=== PATIENT | female | born 1940 | race Caucasian/White ===

== ENCOUNTER 2017-05-13 17:19 | Emergency (ER) | payer MEDICARE, OTHER ==
[~2017-05-13] VITALS: Ht 154.9 cm; Wt 77.1 kg
[~2017-05-13 17:19] MED LIST: ALBU90OI INH; AMLO5 PO; ATOR10 PO; Crestor5 MG PO; DEXL60CA3 PO; HYDACE10B PO; HYDACE5 PO; HYDCHL25 PO; IBUP800 PO; LOSHYD100 PO; METF500 PO; METO100 PO; METO100ER PO; NAPR500 PO; OMEP20ER PO; Omega 3 1,0001 EACH PO; RANI150 PO; ROSU5 PO; SPIRIVA INH; TIOT18 IH; TIOT18 INH; Ultram50 MG PO
[2017-05-13 18:47] LABS: Source, Urine Clean Catch
[2017-05-13 18:52] LABS: BASOPHILS ABSOLUTE AUTO 0.02 K/mm3 (0.00-0.23); BASOPHILS PERCENT AUTO 0 % (0-2); EOSINOPHILS ABSOLUTE AUTO 0.01 K/mm3 (0.00-0.68); EOSINOPHILS PERCENT AUTO 0 % (0-6); Hematocrit 38.2 % (33.0-51.0); Hemoglobin 12.5 g/dL (11.5-16.0); IMMATURE GRAN ABSOLUTE AUTO 0.04 K/mm3 (0.00-0.10); IMMATURE GRAN PERCENT AUTO 0 % (0-1); LYMPHOCYTES ABSOLUTE AUTO 0.71 K/mm3 (0.84-5.20); LYMPHOCYTES PERCENT AUTO 7 % (21-46); MONOCYTES ABSOLUTE AUTO 0.58 K/mm3 (0.16-1.47); MONOCYTES PERCENT AUTO 5 % (4-13); Mean Corpuscular HGB 28.4 pg (26.0-34.0); Mean Corpuscular HGB Conc 32.7 g/dL (31.5-36.5); Mean Corpuscular Volume 87 fL (80-100); Mean Platelet Volume 9.8 fL (9.1-12.4); NEUTROPHILS ABSOLUTE AUTO 9.43 K/mm3 (1.96-9.15); NEUTROPHILS PERCENT AUTO 87 % (41-73); Platelet Count 324 K/mm3 (150-400); RDW Coefficient Variation 14.3 % (11.7-14.2); RDW Standard Deviation 45.3 fL (35.1-46.3); White Blood Cell Count 10.79 K/mm3 (4.00-11.30)
[2017-05-13 18:52] LABS: Appearance, Urine Clear (Clear); Bilirubin, Urine Neg (Neg); Blood, Urine Neg (Neg); Color, Urine Yellow (P-Yellow); Glucose Qualitative, Urine Neg (Neg); Ketones, Urine Neg (Neg); Leukocyte Esterase, Urine 1+ (Neg); Nitrite, Urine Neg (Neg); Protein, Urine Neg (Neg); Urobilinogen, Urine 2+ (Normal)
[2017-05-13 19:02] LABS: Bacteria Few /hpf; Red Blood Cells, Urine 0-2 /hpf (0-2); Squamous Epithelial Cells Mod /hpf (Few)
[2017-05-13 19:09] LABS: Alanine Aminotransfer (ALT/SGP 203 U/L (12-78); Albumin, Blood 3.5 g/dL (3.4-5.0); Albumin/Globulin Ratio 0.9 (0.8-1.8); Alk Phos 437 U/L (50-136); Anion Gap 7 mmol/L (6-16); Aspartate Aminotrans (AST/SGOT 344 U/L (12-37); Bilirubin, Total 2.4 mg/dL (0.1-1.0); Blood Urea Nitrogen 12 mg/dL (8-24); Bun/Creatinine Ratio 14.2 (12.0-20.0); CO2, Blood 30 mmol/L (21-32); Calcium, Blood 9.6 mg/dL (8.5-10.1); Chloride, Blood 100 mmol/L (98-108); Creatinine, Blood 0.85 mg/dL (0.40-1.00); Glomerular Filtration Rate >60 (60-); Glucose, Blood 135 mg/dL (70-99); Potassium, Blood 2.7 mmol/L (3.5-5.5); Sodium, Blood 137 mmol/L (136-145); Total Protein, Blood 7.5 g/dL (6.4-8.2)
== END 2017-05-14 00:15 ==
LOC: ER 17:19
PROVIDERS: Emergency Medicine
DX: K80.71 Calculus of gallbladder and bile duct without cholecystitis with obstruction (principal); K57.30 Diverticulosis of large intestine without perforation or abscess without bleeding; I10 Essential (primary) hypertension; Z88.0 Allergy status to penicillin; Z79.899 Other long term (current) drug therapy; Z87.891 Personal history of nicotine dependence
CPT/HCPCS: 36415; 74177; 80053; 81001; 83690; 85025; 96361; 96365; 96366; 96368; 96375; 99285; J0692; J2001; J2405; J3480; J7030; Q9967

== ENCOUNTER 2017-07-06 09:36 | Day surgery (SDC) | payer MEDICARE, OTHER ==
[~2017-07-06] VITALS: Ht 154.9 cm; Wt 77.6 kg
[~2017-07-06 09:36] MED LIST changes: +Coq-10100 MG PO
== END 2017-07-06 23:02 | disposition home or self-care (01) ==
LOC: ORSCMMR 09:36 → ORD 11:15 → ORSCMMR 23:02
PROVIDERS: Surgery
PROC: 0WUF0JZ Supplement Abdominal Wall with Synthetic Substitute, Open Approach (ICD-10-PCS; principal; 2017-07-06 12:30)
DX: K43.2 Incisional hernia without obstruction or gangrene (principal); I10 Essential (primary) hypertension; J44.9 Chronic obstructive pulmonary disease, unspecified; E11.9 Type 2 diabetes mellitus without complications; Z79.899 Other long term (current) drug therapy
CPT/HCPCS: 82947; C1713; C1781; J1100; J1885; J2405; J2710; J3010; J7120

== ENCOUNTER 2017-07-20 13:32 | Inpatient (IN) | payer MEDICARE, OTHER ==
[~2017-07-20] VITALS: Ht 157.5 cm; Wt 75.8 kg
[2017-07-25] MEDS ORDERED: LOSARTAN-HCTZ1 EAC1 PO (07:05)
[2017-07-26 04:31] LABS: BASOPHILS ABSOLUTE AUTO 0.02 K/mm3 (0.00-0.23); BASOPHILS PERCENT AUTO 0 % (0-2); EOSINOPHILS ABSOLUTE AUTO 0.03 K/mm3 (0.00-0.68); EOSINOPHILS PERCENT AUTO 0 % (0-6); Hemoglobin 9.2 g/dL (11.5-16.0); IMMATURE GRAN ABSOLUTE AUTO 0.04 K/mm3 (0.00-0.10); IMMATURE GRAN PERCENT AUTO 0 % (0-1); LYMPHOCYTES ABSOLUTE AUTO 1.56 K/mm3 (0.84-5.20); LYMPHOCYTES PERCENT AUTO 16 % (21-46); MONOCYTES ABSOLUTE AUTO 0.75 K/mm3 (0.16-1.47); MONOCYTES PERCENT AUTO 8 % (4-13); Mean Corpuscular HGB 27.7 pg (26.0-34.0); Mean Corpuscular HGB Conc 31.7 g/dL (31.5-36.5); Mean Corpuscular Volume 87 fL (80-100); Mean Platelet Volume 9.5 fL (9.1-12.4); NEUTROPHILS ABSOLUTE AUTO 7.42 K/mm3 (1.96-9.15); NEUTROPHILS PERCENT AUTO 76 % (41-73); Platelet Count 264 K/mm3 (150-400); RDW Coefficient Variation 14.9 % (11.7-14.2); RDW Standard Deviation 47.6 fL (35.1-46.3); Red Blood Cell Count 3.32 M/mm3 (3.80-5.20); White Blood Cell Count 9.82 K/mm3 (4.00-11.30)
[2017-07-26 04:56] LABS: Anion Gap 9 mmol/L (6-16); Blood Urea Nitrogen 14 mg/dL (8-24); Bun/Creatinine Ratio 18.1 (12.0-20.0); CO2, Blood 27 mmol/L (21-32); Calcium, Blood 8.5 mg/dL (8.5-10.1); Chloride, Blood 107 mmol/L (98-108); Creatinine, Blood 0.78 mg/dL (0.40-1.00); Glomerular Filtration Rate >60 (60-); Glucose, Blood 108 mg/dL (70-99); Potassium, Blood 3.6 mmol/L (3.5-5.5); Sodium, Blood 143 mmol/L (136-145)
[2017-07-26] MEDS ORDERED: ASPI325EC PO (15:12)
[2017-07-26] MEDS ORDERED: OXYC5 PO (15:13)
== END 2017-07-26 15:45 | disposition home or self-care (01) | DRG 483 ==
LOC: SURS 07-25 05:32 → PRE IP 07-25 07:30 → SURS 07-25 12:09
PROVIDERS: Orthopaedic Surgery
PROC: 0RRK00Z Replacement of Left Shoulder Joint with Reverse Ball and Socket Synthetic Substitute, Open Approach (ICD-10-PCS; principal; 2017-07-25 07:30)
DX: M19.012 Primary osteoarthritis, left shoulder (principal); E11.9 Type 2 diabetes mellitus without complications; I10 Essential (primary) hypertension; E78.5 Hyperlipidemia, unspecified; J44.9 Chronic obstructive pulmonary disease, unspecified; K21.9 Gastro-esophageal reflux disease without esophagitis
CPT/HCPCS: 36415; 73030; 80048; 82947; 85025; 86850; 86900; 86901; 94640; 94760; 97110; 97116; 97162; 97165; 97535; C1776; G8978; G8979; G8980; G8987; G8988; G8989; J0171; J0690; J0735; J1100; J1885; J2250; J2405; J2765; J2795; J3010; J7120; Q0163

== ENCOUNTER 2018-04-03 05:33 | Inpatient (IN) | payer MEDICARE, OTHER ==
[~2018-04-03] VITALS: Ht 157.5 cm; Wt 74.4 kg
[~2018-04-03 05:33] MED LIST changes: +ASPI325EC PO; +IBUP400 PO; +LOSARTAN-HCTZ1 EAC1 PO; +OMEGA PO; +OXYC5 PO; +[UNRECOGNIZED DRUG - OTHER] PO
--- NOTE | 2018-04-10 08:01 | NUR ---
0620 PT TO DAY SURGERY VIA W/C CONFIRMED PATIENT. AND SURGERY. PRE OP TEACHING DONE. LUNGS CLEAR. H&P AND ALLERGIES REVIEWED. FAMILY AT BEDSIDE. 0715 CLINCHING MACHINE OPERATOR OUT TO SEE PT BEDSIDE REPORT GIVEN. [id number] DENTURES AND GLASSES PLACED IN PACU
[2018-04-11 05:19] LABS: BASOPHILS ABSOLUTE AUTO 0.01 K/mm3 (0.00-0.23); BASOPHILS PERCENT AUTO 0 % (0-2); EOSINOPHILS ABSOLUTE AUTO 0.01 K/mm3 (0.00-0.68); EOSINOPHILS PERCENT AUTO 0 % (0-6); Hematocrit 27.8 % (33.0-51.0); Hemoglobin 8.6 g/dL (11.5-16.0); IMMATURE GRAN ABSOLUTE AUTO 0.03 K/mm3 (0.00-0.10); IMMATURE GRAN PERCENT AUTO 0 % (0-1); LYMPHOCYTES ABSOLUTE AUTO 1.42 K/mm3 (0.84-5.20); LYMPHOCYTES PERCENT AUTO 13 % (21-46); MONOCYTES ABSOLUTE AUTO 0.66 K/mm3 (0.16-1.47); MONOCYTES PERCENT AUTO 6 % (4-13); Mean Corpuscular HGB 25.5 pg (26.0-34.0); Mean Corpuscular HGB Conc 30.9 g/dL (31.5-36.5); Mean Corpuscular Volume 83 fL (80-100); Mean Platelet Volume 9.7 fL (9.1-12.4); NEUTROPHILS PERCENT AUTO 80 % (41-73); Platelet Count 263 K/mm3 (150-400); RDW Coefficient Variation 17.6 % (11.7-14.2); RDW Standard Deviation 52.6 fL (35.1-46.3); Red Blood Cell Count 3.37 M/mm3 (3.80-5.20); White Blood Cell Count 10.83 K/mm3 (4.00-11.30)
[2018-04-11 05:53] LABS: Anion Gap 10 mmol/L (6-16); Blood Urea Nitrogen 16 mg/dL (8-24); Bun/Creatinine Ratio 21.6 (12.0-20.0); CO2, Blood 24 mmol/L (21-32); Calcium, Blood 8.9 mg/dL (8.5-10.1); Chloride, Blood 107 mmol/L (98-108); Creatinine, Blood 0.74 mg/dL (0.40-1.00); Glomerular Filtration Rate >60 (60-); Glucose, Blood 144 mg/dL (70-99); Potassium, Blood 3.9 mmol/L (3.5-5.5); Sodium, Blood 141 mmol/L (136-145)
--- NOTE | 2018-04-11 07:04 | NUR ---
HAS HAD A GREAT NIGHT, HAS NOT BEEN ABLE TO SLEEP, BUT HAS BEEN ABLE TO REST WELL. DENIES PAIN CURRENTLY, PAIN MANAGED WITH 1X DOSE OF BREAKTHROUGH ROXYCODONE AND ROUTINE TORADOL AND TYLENOL. DENIES FURTHER NEEDS AT THIS TIME. SAFETY MEASURES IN PLACE. WILL CONTINUE TO MONITOR.
--- NOTE | 2018-04-11 14:06 | NUR ---
DR Vasquez. RECENTLY HERE. DISCUSSED PT'S STATUS.
[2018-04-11] MEDS ORDERED: ASPI325EC PO (16:45)
[2018-04-11] MEDS ORDERED: ROXICODONE5 MG PO (16:46)
--- NOTE | 2018-04-11 18:30 | NUR ---
DISCHARGE: PT EATING AND DRINKING. PT REPORTS PAIN CONTROLLED ON PO PAIN MEDICATION. PT/FAMILY REPORTS UNDERSTANDING OF DISCHARGE INSTRUCTIONS INCLUDING THERAPY RESTRICTIOINS. PT CLEARED BY THERAPY TO GO HOME. PT SENT WITH DRESSINGS AND ICE BAGS. PT HAS IMMOBILIZER IN PLACE.
== END 2018-04-11 18:30 | disposition home or self-care (01) | DRG 483 ==
LOC: PRE IP 05:33 → SURS 05:33 → PRE IP 07:30 → SURS 04-10 05:31 → PRE IP 04-10 07:30 → SURS 04-10 12:41
PROVIDERS: ADMIT Orthopaedic Surgery
PROC: 0RRJ00Z Replacement of Right Shoulder Joint with Reverse Ball and Socket Synthetic Substitute, Open Approach (ICD-10-PCS; principal; 2018-04-10 07:30)
DX: M19.011 Primary osteoarthritis, right shoulder (principal); I10 Essential (primary) hypertension; J44.9 Chronic obstructive pulmonary disease, unspecified; E11.9 Type 2 diabetes mellitus without complications; E78.5 Hyperlipidemia, unspecified; G89.29 Other chronic pain; Z88.0 Allergy status to penicillin; Z87.891 Personal history of nicotine dependence; Z79.899 Other long term (current) drug therapy; Z85.038 Personal history of other malignant neoplasm of large intestine
CPT/HCPCS: 36415; 73030; 80048; 82947; 85025; 88300; 94640; 94760; 97110; 97116; 97162; 97166; 97530; 97535; C1776; J0171; J0360; J0690; J0735; J1100; J1885; J2405; J2795; J3010; J7120

== ENCOUNTER 2021-01-30 16:22 | Inpatient (IN) | payer OTHER ==
[~2021-01-30] VITALS: Ht 154.9 cm; Wt 69.4 kg
[~2021-01-30 16:22] MED LIST changes: +METO25ER PO; +ROXICODONE5 MG PO
[2021-01-30] MEDS ORDERED: SPIR25 PO (16:38)
[2021-01-30] MEDS ORDERED: IBUP400 PO (16:40)
[2021-01-30] MEDS ORDERED: POTCHL20ER PO (16:41)
[2021-01-30] MEDS ORDERED: ALBU8HFA2 INH (16:42)
[2021-01-30] MEDS ORDERED: ANORO ELLIPTA1 EACH INH (16:42)
[2021-01-30 17:16] LABS: BASOPHILS ABSOLUTE AUTO 0.03 K/mm3 (0.00-0.23); BASOPHILS PERCENT AUTO 0 % (0-2); EOSINOPHILS PERCENT AUTO 0 % (0-6); Hematocrit 20.3 % (33.0-51.0); IMMATURE GRAN ABSOLUTE AUTO 0.19 K/mm3 (0.00-0.10); IMMATURE GRAN PERCENT AUTO 1 % (0-1); LYMPHOCYTES ABSOLUTE AUTO 0.75 K/mm3 (0.84-5.20); LYMPHOCYTES PERCENT AUTO 4 % (21-46); MONOCYTES PERCENT AUTO 6 % (4-13); Mean Corpuscular HGB 23.5 pg (26.0-34.0); Mean Corpuscular HGB Conc 29.6 g/dL (31.5-36.5); Mean Corpuscular Volume 80 fL (80-100); Mean Platelet Volume 10.2 fL (9.1-12.4); NEUTROPHILS ABSOLUTE AUTO 18.39 K/mm3 (1.96-9.15); NEUTROPHILS PERCENT AUTO 89 % (41-73); NRBC ABSOLUTE 0.23 K/mm3 (0.00-0.02); NRBC Auto 1.1 /100 WBC (0.0-0.2); Platelet Count 434 K/mm3 (150-400); RDW Coefficient Variation 24.7 % (11.7-14.2); Red Blood Cell Count 2.55 M/mm3 (3.80-5.20); White Blood Cell Count 20.66 K/mm3 (4.00-11.30)
[2021-01-30 17:44] LABS: Alanine Aminotransfer (ALT/SGP 50 U/L (12-78); Albumin/Globulin Ratio 0.8 (0.8-1.8); Alk Phos 95 U/L (50-136); Anion Gap 9 mmol/L (6-16); Aspartate Aminotrans (AST/SGOT 70 U/L (12-37); Bilirubin, Total 0.3 mg/dL (0.1-1.0); Blood Urea Nitrogen 16 mg/dL (8-24); Bun/Creatinine Ratio 19.4 (12.0-20.0); CO2, Blood 21 mmol/L (21-32); Calcium, Blood 9.9 mg/dL (8.5-10.1); Chloride, Blood 107 mmol/L (98-108); Creatinine, Blood 0.82 mg/dL (0.40-1.00); Globulin, Blood 3.7 g/dL (2.2-4.0); Glomerular Filtration Rate >60 (60-); Glucose, Blood 226 mg/dL (70-99); Potassium, Blood 4.4 mmol/L (3.5-5.5); Sodium, Blood 137 mmol/L (136-145); Total Protein, Blood 6.7 g/dL (6.4-8.2)
[2021-01-30 19:05] LABS: International Normalized Ratio 1.13; Prothrombin Time Results 11.8 Sec (9.7-11.5)
[2021-01-30 20:14] LABS: Percent Saturation 3.7 % (15.0-50.0)
[2021-01-30 21:08] LABS: Source, Urine Catheter
[2021-01-30 21:15] LABS: Bilirubin, Urine Neg (Neg); Blood, Urine 2+ (Neg); Glucose Qualitative, Urine Neg (Neg); Ketones, Urine Neg (Neg); Leukocyte Esterase, Urine Neg (Neg); Nitrite, Urine Neg (Neg); Protein, Urine 2+ (Neg); Specific Gravity, Urine 1.025 (1.003-1.022); Urobilinogen, Urine NORM (Normal)
[2021-01-30 21:22] LABS: PCO2 Venous 44.4 mmHg (38-42); PO2 Venous 33 mmHg (38-42); pH Blood Venous 7.14 (7.34-7.37)
[2021-01-30 21:23] LABS: Base Excess Venous -14.2 mmol/L; Bicarbonate Venous 13.4 mmol/L (24.0-30.0)
[2021-01-30 21:25] LABS: Appearance, Urine Clear (Clear); Color, Urine Yellow (P-Yellow)
[2021-01-30 21:27] LABS: Amorphous Light (0-Heavy); Bacteria Rare /hpf; Squamous Epithelial Cells Few /hpf (Few); White Blood Cells, Urine Rare /hpf (0-5)
[2021-01-30 23:25] LABS: Hematocrit 25.7 % (33.0-51.0); Hemoglobin 7.8 g/dL (11.5-16.0)
[2021-01-31 03:56] LABS: BASOPHILS ABSOLUTE AUTO 0.02 K/mm3 (0.00-0.23); BASOPHILS PERCENT AUTO 0 % (0-2); EOSINOPHILS PERCENT AUTO 0 % (0-6); Hematocrit 21.7 % (33.0-51.0); Hemoglobin 6.9 g/dL (11.5-16.0); IMMATURE GRAN ABSOLUTE AUTO 0.24 K/mm3 (0.00-0.10); IMMATURE GRAN PERCENT AUTO 1 % (0-1); LYMPHOCYTES PERCENT AUTO 4 % (21-46); MONOCYTES PERCENT AUTO 4 % (4-13); Mean Corpuscular HGB 24.8 pg (26.0-34.0); Mean Corpuscular HGB Conc 31.8 g/dL (31.5-36.5); Mean Corpuscular Volume 78 fL (80-100); NEUTROPHILS ABSOLUTE AUTO 15.79 K/mm3 (1.96-9.15); NEUTROPHILS PERCENT AUTO 92 % (41-73); NRBC ABSOLUTE 0.17 K/mm3 (0.00-0.02); Platelet Count 305 K/mm3 (150-400); RDW Coefficient Variation 21.4 % (11.7-14.2); RDW Standard Deviation 61.5 fL (35.1-46.3); Red Blood Cell Count 2.78 M/mm3 (3.80-5.20); White Blood Cell Count 17.25 K/mm3 (4.00-11.30)
[2021-01-31 04:15] LABS: Bun/Creatinine Ratio 21.8 (12.0-20.0); Calcium, Blood 9.1 mg/dL (8.5-10.1); Creatinine, Blood 0.92 mg/dL (0.40-1.00); Potassium, Blood 3.4 mmol/L (3.5-5.5)
--- NOTE | 2021-01-31 07:17 | NUR ---
ON ADMIT, CONFUSED AND VERY LABORED BREATHING. IMPROVED WITH BIPAP. WEANED OFF OF PRECEDEX. HEPARIN DRIP STARTED. FIRST UNIT OF PRBC COMPLETED WITH IMPROVED H&H. NEXT REPEAT OF H&H DROPPED. TROP INCREASING. DR NOTIFIED. 2ND UNIT OF PRBC INFUSING. THIS AM RESP EVEN AND UNLABORED. CHANGED OVER TO NC AT 2L.
--- NOTE | 2021-01-31 07:30 | NUR ---
ASSUME CARE: I have assumed care of pt. At this time she is resting in bed with NC in place, receiving a unit of blood with heparin running.
[2021-01-31 12:27] LABS: PO2 Arterial 184 mmHg (80-100); pH Blood Arterial 7.48 (7.35-7.45)
[2021-01-31 13:37] LABS: Free Thyroxine 1.04 ng/dL (0.70-1.60); Thyroid Stimulating Hormone 1.06 uIU/mL (0.360-4.800)
[2021-01-31 17:38] LABS: Stool Occult Blood Guaiac 1 Neg (Neg)
[2021-01-31 18:29] LABS: Hematocrit 31.6 % (33.0-51.0); Hemoglobin 10.2 g/dL (11.5-16.0)
--- NOTE | 2021-01-31 19:07 | NUR ---
END OF SHIFT: Heparin d/c'd today. Pt had minimal appetite today. She tranferred to commode independantly. Medium sized, very hard BM this afternoon; negative for blood. Pt tolerating BIPAP well; on 2L NC when eating. Third unit of PRBCs infused this shift.
--- NOTE | 2021-01-31 19:35 | NUR ---
ASSUMED PT CARE AT 1915 PT SITTING UP IN BED ALERT AND ORIENTED; ABLE TO MAKE HER NEEDS KNOWN. UTILIZING CALL LIGHT APPROPRIATELY. PT ON 2L OF OXYGEN VIA NC WITH OXYGEN SATURATIONS >90%. PT C/O MUSCLE CRAMPS TO L CALF. PT DRINKING PICKLE JUICE FOR CRAMP TO LEG IN WHICH SHE STATES THIS HELPS AT HOME. MASSAGE GIVEN WITH NOTED TIGHT MUSCLE GROUPS. OFFERED HEAT PACK IN WHICH PT STATED SHE IS OPEN TO TRYING. PT ALSO C/O INDIGESTION; PT IS NSR WITH HR 90'S WITH ST DEPRESSION NOTED. TROPONIN RESULTED WITH A CRITICAL HIGH OF 12.40; DR. CLARKE CALLED WITH NO FURTHER ORDERS. CALLED DR. AGUILAR REGARDING INDIGESTION WITH ORDERS FOR GI COCKTAIL. PT REQUESTED TO GO BACK ON BIPAP; 19/09; FIO2 30%. RESP RATE 20'S. PT DOES NOT APPEAR IN RESPIRATORY DISTRESS AT THIS TIME; ABLE TO SPEAK IN FULL SENTENCES. TEMP VELAZQUEZ IN PLACE AND DRAINING CLEAR, YELLOW URINE TO GRAVITY. CALL LIGHT WITHIN REACH; WILL CONTINUE TO MONITOR.
[2021-01-31 20:16] LABS: Hematocrit 32.1 % (33.0-51.0); Hemoglobin 10.4 g/dL (11.5-16.0)
[2021-01-31 22:17] LABS: Hematocrit 30.6 % (33.0-51.0); Hemoglobin 9.8 g/dL (11.5-16.0)
--- NOTE | 2021-01-31 22:18 | NUR ---
CALL TO DR. AGUILAR PT C/O FREQUENT Q2 HOUR LAB DRAWS FOR H&H. INFORMED DR. AGUILAR OF PT'S CONCERN WITH NO ACTIVE SIGNS OF BLEEDING. VITAL SIGNS STABLE AT THIS TIME, LAST COUPLE H&H'S HAVE REMAINED STABLE AT 10. NEW ORDERS TO REDRAW H&H IN MORNING UNLESS PT SHOWS SIGNS OF ACTIVE BLEEDING.
[2021-02-01 02:20] LABS: BASOPHILS ABSOLUTE AUTO 0.03 K/mm3 (0.00-0.23); BASOPHILS PERCENT AUTO 0 % (0-2); EOSINOPHILS ABSOLUTE AUTO 0.01 K/mm3 (0.00-0.68); EOSINOPHILS PERCENT AUTO 0 % (0-6); Hematocrit 29.9 % (33.0-51.0); Hemoglobin 9.8 g/dL (11.5-16.0); IMMATURE GRAN PERCENT AUTO 1 % (0-1); LYMPHOCYTES ABSOLUTE AUTO 1.45 K/mm3 (0.84-5.20); LYMPHOCYTES PERCENT AUTO 9 % (21-46); MONOCYTES ABSOLUTE AUTO 1.08 K/mm3 (0.16-1.47); MONOCYTES PERCENT AUTO 7 % (4-13); Mean Corpuscular HGB 26.1 pg (26.0-34.0); Mean Corpuscular HGB Conc 32.8 g/dL (31.5-36.5); Mean Corpuscular Volume 80 fL (80-100); Mean Platelet Volume 9.6 fL (9.1-12.4); NEUTROPHILS ABSOLUTE AUTO 13.93 K/mm3 (1.96-9.15); NEUTROPHILS PERCENT AUTO 83 % (41-73); NRBC ABSOLUTE 0.25 K/mm3 (0.00-0.02); NRBC Auto 1.5 /100 WBC (0.0-0.2); Platelet Count 307 K/mm3 (150-400); RDW Coefficient Variation 19.6 % (11.7-14.2); RDW Standard Deviation 56.5 fL (35.1-46.3); Red Blood Cell Count 3.75 M/mm3 (3.80-5.20)
[2021-02-01 02:44] LABS: Magnesium, Blood 1.6 mg/dL (1.6-2.4)
[2021-02-01 03:04] LABS: Albumin, Blood 2.6 g/dL (3.4-5.0); Albumin/Globulin Ratio 0.8 (0.8-1.8); Bilirubin, Total 0.7 mg/dL (0.1-1.0); Bun/Creatinine Ratio 27.4 (12.0-20.0); Calcium, Blood 8.6 mg/dL (8.5-10.1); Creatinine, Blood 1.06 mg/dL (0.40-1.00); Globulin, Blood 3.4 g/dL (2.2-4.0); Potassium, Blood 3.7 mmol/L (3.5-5.5)
--- NOTE | 2021-02-01 05:45 | NUR ---
END OF SHIFT SUMMARY NO SIGNIFICANT CHANGES THIS SHIFT. VSS; SEE FLOWSHEET. HGB REMAINED STABLE. NO ACTIVE SIGNS OF BLEEDING. PT CONTINUES TO C/O UPPER/MID EPIGASTRIC PAIN AND INDIGESTION. MEDICATED WITH GI COCKTAIL X3 THIS SHIFT WITH GOOD EFFECT. PT STATES HER PAIN IS WORSE AFTER SHE EATS AND SHE FEELS REGURGITATION OF FOOD AFTERWARD. THEREFORE, ENCOURAGED PT TO DRINK AN ENSURE, WHICH SHE TOLERATED WELL. PT ADAMANT ABOUT NEEDING TO SPEAK TO HER PHYSCIAN THAT REMOVED HER COLON CANCER SHE BELIEVES THIS IS STRONGLY RELATED. ATTEMPTED TO ENCOURAGE PT THAT MOST SURGICAL COMPLICATIONS DON'T HAPPEN 4 YEARS POST OP AND THAT THIS EVENT WAS MOST LIKELY RELATED TO HER CONSUMPTION OF TOO MUCH IBUPROFEN; PT VERBALIZED UNDERSTANDING. PT ALSO VERBALIZED CONCERN REGARDING HER "PARITALLY BLOCKED CORONARY ARTERY" IN WHICH HER PCP FOUND A COUPLE YEARS AGO THAT WAS "INOPERABLE" DUE TO ITS LOCATION. I INFORMED THE PT THAT SHE IS CURRENTLY BEING TREATED FOR THE SAME OR SIMILAR ISSUE RIGHT NOW AND THAT CARDIOLOGY IS ON HER CASE. PT APPEARED RELIEVED AND STATED, "I HOPE THEY CAN GO IN AND OPEN IT UP." OTHERWISE, PT HAS NOT SLEPT AT ALL THIS SHIFT. SHE HAS BEEN VERY PLEASANT AND COOPERATIVE. DAUGHTER CALLED LATE IN THE SHIFT AND SPOKE WITH PT. 1400CC IN URINE OUTPUT THIS SHIFT WITH 700CC INTAKE. PT ALSO EDUCATED REGARDING HEART FAILURE SHE WASN'T UNDERSTANDING WHY SHE WAS SO SHORT OF BREATH. PT CONTINUES TO NEED REINFORCEMENT WITH EDUCATION. WILL CONTINUE TO MONITOR UNTIL REPORT IS HANDED TO TO ONCOMING RN.
[2021-02-01 06:33] LABS: Hematocrit 31.1 % (33.0-51.0); Hemoglobin 10.1 g/dL (11.5-16.0)
--- NOTE | 2021-02-01 09:38 | NUR ---
PT TOLERATED BREAK FROM BIPAP FOR BREAKFAST. ASKED TO GET UP TO CHAIR FOR REPOSITIONING AND THEN ASKED TO BE BACK ON BIPAP. SETTINGS AT 10/6 WITH 30% FIO2. TOLERATING WELL
--- NOTE | 2021-02-01 14:32 | NUR ---
PT C/O NAUSEA AFTER LUNCH. WAS GIVEN GI COCKTAIL WITH DESIRED EFFECT. PT STATES MUCH IMPROVED. PT FELL ASLEEP WITH NC HANGING OUT OF NOSE AND DESATURATED TO 87%. BIPAP IN PLACE WHILE SLEEPING WITH SATS NOW IN THE 90S.
--- NOTE | 2021-02-01 14:55 | NUR ---
DUMB WAITER OPERATOR CALLED ABOUT PT'S PO STATUS. RN RELAYED THAT PT HAD LUNCH. TECH INSTRUCTED FOR NPO. NPO SIGN ON DOOR AND PT AWARE. WATER REMOVED FROM BEDSIDE TABLE
--- NOTE | 2021-02-01 17:19 | NUR ---
FILE KEEPER AT BEDSIDE AT THIS TIME
--- NOTE | 2021-02-01 17:49 | NUR ---
SHIFT SUMMARY: PT ALTERNATING BETWEEN NC AND BIPAP. DESATURATED ONCE INTO THE 80S WHEN CANNULA CAME OUT OF NOSE, OTHERWISE ONLY ASKS FOR IT TO BE REPLACED AFTER ACTIVITIES. ULTRASOUND COMPLETED DUE TO CONTINUED C/O ABDOMINAL PAIN AFTER EATING. DIURESING WELL. NO ACUTE NEEDS AT THIS TIME.
[2021-02-02 04:08] LABS: Anion Gap 5 mmol/L (6-16); Blood Urea Nitrogen 27 mg/dL (8-24); Bun/Creatinine Ratio 30.7 (12.0-20.0); CO2, Blood 33 mmol/L (21-32); Calcium, Blood 8.7 mg/dL (8.5-10.1); Chloride, Blood 101 mmol/L (98-108); Creatinine, Blood 0.88 mg/dL (0.40-1.00); Glomerular Filtration Rate >60 (60-); Glucose, Blood 119 mg/dL (70-99); Potassium, Blood 4.1 mmol/L (3.5-5.5); Sodium, Blood 139 mmol/L (136-145)
[2021-02-02 08:08] LABS: HBSAG SCREEN Negative (Negative); HEP A AB, IGM Negative (Negative); HEP B CORE AB, IGM Negative (Negative); HEP C VIRUS AB <0.1 (0.0-0.9)
--- NOTE | 2021-02-02 14:02 | NUR ---
0800-- Assumed care of patient at 0700 from hourly shift manager. Sabina has been very pleasant today. She didn't eat much breakfast but she ate all of her lunch. She has been up out of bed for a few hours this morning after her CT scan of her abdomen. She remains on 2L NC of oxygen saturation holding high 90's. Her vital signs remain stable at this time. She received a diuretic this am and has put out almost 2L of urine so far. Her lungs remains with fine crackles bilaterally in bases. Will continue to monitor patient at this time.
--- NOTE | 2021-02-02 18:12 | NUR ---
Pt from ICU in bed, stood out of bed to transfer to the PCU 1 bed. She is holding on to furniture and needing staff assistance for minimal assist during the transfer. Alert, oriented, cheerful and joking with staff. Sat up in bed, neck pillow in place, and she is watching TV. Wearing oxygen at 2 l/min. No shortness of breath noted at rest, mild dyspnea noted with the minimal activity.
--- NOTE | 2021-02-02 18:12 | NUR ---
PATIENT HAD A GOOD AMOUNT OF ACTIVITY TODAY AND ALSO RESTED A BIT THIS AFTERNOON. SHE HAS CONTINUED TO HAVE A POSITIVE ATTITUDE ALL DAY. SHE HAS HAD A TOTAL OF 1800 MLS OUT ALL DAY FROM HER VELAZQUEZ CATHETER. PATIENT MOVED TO PCU 1 THIS AFTERNOON TO RESUME CARE.
--- NOTE | 2021-02-02 18:40 | NUR ---
Pt has been weaned off of oxygen, spo2 maintaining 98% at rest while sitting up in bed, watching TV.
[2021-02-03 03:34] LABS: BASOPHILS ABSOLUTE AUTO 0.03 K/mm3 (0.00-0.23); BASOPHILS PERCENT AUTO 0 % (0-2); EOSINOPHILS ABSOLUTE AUTO 0.09 K/mm3 (0.00-0.68); EOSINOPHILS PERCENT AUTO 1 % (0-6); Hematocrit 31.2 % (33.0-51.0); Hemoglobin 9.5 g/dL (11.5-16.0); IMMATURE GRAN ABSOLUTE AUTO 0.18 K/mm3 (0.00-0.10); IMMATURE GRAN PERCENT AUTO 2 % (0-1); LYMPHOCYTES PERCENT AUTO 16 % (21-46); MONOCYTES ABSOLUTE AUTO 1.01 K/mm3 (0.16-1.47); MONOCYTES PERCENT AUTO 9 % (4-13); Mean Corpuscular HGB Conc 30.4 g/dL (31.5-36.5); Mean Corpuscular Volume 82 fL (80-100); Mean Platelet Volume 9.2 fL (9.1-12.4); NEUTROPHILS ABSOLUTE AUTO 8.25 K/mm3 (1.96-9.15); NEUTROPHILS PERCENT AUTO 73 % (41-73); NRBC ABSOLUTE 0.03 K/mm3 (0.00-0.02); NRBC Auto 0.3 /100 WBC (0.0-0.2); Platelet Count 251 K/mm3 (150-400); RDW Coefficient Variation 20.9 % (11.7-14.2); RDW Standard Deviation 62.2 fL (35.1-46.3); White Blood Cell Count 11.36 K/mm3 (4.00-11.30)
[2021-02-03 03:52] LABS: Alanine Aminotransfer (ALT/SGP 772 U/L (12-78); Albumin, Blood 2.5 g/dL (3.4-5.0); Albumin/Globulin Ratio 0.7 (0.8-1.8); Alk Phos 87 U/L (50-136); Anion Gap 3 mmol/L (6-16); Aspartate Aminotrans (AST/SGOT 111 U/L (12-37); Bilirubin, Total 0.5 mg/dL (0.1-1.0); Blood Urea Nitrogen 19 mg/dL (8-24); CO2, Blood 34 mmol/L (21-32); Calcium, Blood 8.8 mg/dL (8.5-10.1); Chloride, Blood 98 mmol/L (98-108); Creatinine, Blood 0.73 mg/dL (0.40-1.00); Globulin, Blood 3.5 g/dL (2.2-4.0); Glomerular Filtration Rate >60 (60-); Glucose, Blood 119 mg/dL (70-99); Potassium, Blood 4.7 mmol/L (3.5-5.5); Sodium, Blood 135 mmol/L (136-145)
--- NOTE | 2021-02-03 05:58 | NUR ---
SHIFT SUMMARY PATIENT ALERT AND ORIENTED. VSS. OXYGEN SATURATION ABOVE 95% ON RA. 1.5L NC WHILE SLEEPING DUE TO DESAT INTO HIGH 80s. VELAZQUEZ IN PLACE DRAINING YELLOW URINE TO GRAVITY, BLADDER TRAINING STARTED AT 2200 LAST NIGHT. PATIENT ABLE TO GET UP TO BEDSIDE COMMODE FOR A BOWEL MOVMENT, SBA. PATIENT REPORTED ONE EPISODE OF CHEST PAIN AROUND 0400 AFTER DRINKING AN ENSURE. PATIENT STATED "IT FEELS LIKE HEARTBURN" AND "I FEEL LIKE SOMEONE IS SITTING ON MY CHEST" AND REQUESTED MEDICATION FOR HEARTBURN. EKG PERFORMED. MEDICATED PER EMAR FOR HEARTBURN. PATIENT REPORTS THAT CHEST PAIN/HEARTBURN HAS NOW RESOLVED. NO OTHER SIGNIFICANT CHANGES. WILL REPORT TO DAY SHIFT RN.
--- NOTE | 2021-02-03 07:32 | NUR ---
Vital signs stable. 93% spo2 on room air; with transfer from bed to chair spo2 dropped to 80% with noted minimal dyspnea, and tachycardia. After transfer complete quick recovery within 1 minute to spo2 90%. No c/o heartburn or chest pressure this morning, neither at rest nor with activity. IV right arm redressed as dressing was not intact around the edges. Marley catheter was dc'd.
--- NOTE | 2021-02-03 07:42 | NUR ---
SPO2 dropping to 83% while pt is sitting up in chair, drinking coffee. Given 1 l/min of oxygen via n.c. and spo2 is holding steady 93-95%.
--- NOTE | 2021-02-03 10:09 | NUR ---
Assisted from chair to BSC twice to void. She is requiring 1 l/min of oxygen while up in the chair and with activity of going to BSC.
--- NOTE | 2021-02-03 10:21 | NUR ---
Pt is expressing concern that she might need surgery. States that she had colon cancer and surgical intervention years ago. She said she wants to find out if she needs surgery again.
--- NOTE | 2021-02-03 15:32 | NUR ---
spo2 dropped to 81% while sleeping without supplemental oxygen. 1 l/min applied by n.c.; maintaining spo2 98% now while sleeping. Telemetry discontined per MD orders.
--- NOTE | 2021-02-03 15:33 | NUR ---
Notified Dr. Veras who is here in PCU at this time of pt's low MAP and low blood pressures this afternoon.
[2021-02-04 04:23] LABS: Hematocrit 33.9 % (33.0-51.0); Hemoglobin 10.2 g/dL (11.5-16.0); Mean Corpuscular HGB 24.9 pg (26.0-34.0); Mean Corpuscular HGB Conc 30.1 g/dL (31.5-36.5); Mean Corpuscular Volume 83 fL (80-100); Mean Platelet Volume 9.1 fL (9.1-12.4); NRBC ABSOLUTE 0.03 K/mm3 (0.00-0.02); NRBC Auto 0.2 /100 WBC (0.0-0.2); Platelet Count 262 K/mm3 (150-400); RDW Coefficient Variation 20.8 % (11.7-14.2); RDW Standard Deviation 62.7 fL (35.1-46.3); Red Blood Cell Count 4.09 M/mm3 (3.80-5.20); White Blood Cell Count 12.02 K/mm3 (4.00-11.30)
[2021-02-04 05:27] LABS: Alanine Aminotransfer (ALT/SGP 552 U/L (12-78); Albumin, Blood 2.7 g/dL (3.4-5.0); Albumin/Globulin Ratio 0.8 (0.8-1.8); Alk Phos 98 U/L (50-136); Anion Gap 6 mmol/L (6-16); Aspartate Aminotrans (AST/SGOT 63 U/L (12-37); Bilirubin, Total 0.4 mg/dL (0.1-1.0); Blood Urea Nitrogen 17 mg/dL (8-24); Bun/Creatinine Ratio 22.6 (12.0-20.0); CO2, Blood 32 mmol/L (21-32); Calcium, Blood 8.7 mg/dL (8.5-10.1); Chloride, Blood 96 mmol/L (98-108); Creatinine, Blood 0.75 mg/dL (0.40-1.00); Globulin, Blood 3.2 g/dL (2.2-4.0); Glomerular Filtration Rate >60 (60-); Glucose, Blood 111 mg/dL (70-99); Magnesium, Blood 2.5 mg/dL (1.6-2.4); Potassium, Blood 4.9 mmol/L (3.5-5.5); Sodium, Blood 134 mmol/L (136-145); Total Protein, Blood 5.9 g/dL (6.4-8.2)
[2021-02-04] MEDS ORDERED: FURO20 PO (10:22)
[2021-02-04] MEDS ORDERED: FAMO20 PO (10:25)
[2021-02-04] MEDS ORDERED: Acetaminophen650 M1 PO (10:26)
--- NOTE | 2021-02-04 10:30 | NUR ---
Pt completed her home oxygen evaluation. Per RT Frankie, pt requires oxygen with activity.
--- NOTE | 2021-02-04 12:35 | NUR ---
Call to Shanell pt's daughter, left voice mail informing her that the pt has her oxygen concentrator and is ready to be discharged home now.
--- NOTE | 2021-02-04 16:29 | NUR ---
PT's daughter Shanell arrived to take pt home in her own vehicle. Pt dressed, and taken out to car in wheelchair with oxygen concentrator (provided by [employer]) in use by the pt 2 l/min by nasal cannula.
== END 2021-02-04 16:16 | disposition home or self-care (01) | DRG 291 ==
LOC: ER 16:22 → ICUW 20:12 → PCU 20:12 → ICUW 20:23 → PCU 02-02 17:52
PROVIDERS: Internal Medicine; Physician Assistant; ADMIT Internal Medicine
PROC: 30233N1 Transfusion of Nonautologous Red Blood Cells into Peripheral Vein, Percutaneous Approach (ICD-10-PCS; principal; 2021-01-30)
PROC: 3E02340 Introduction of Influenza Vaccine into Muscle, Percutaneous Approach (ICD-10-PCS; 2021-01-30)
DX: I13.0 Hypertensive heart and chronic kidney disease with heart failure and stage 1 through stage 4 chronic kidney disease, or unspecified chronic kidney disease (principal); I50.21 Acute systolic (congestive) heart failure; K92.2 Gastrointestinal hemorrhage, unspecified; E44.0 Moderate protein-calorie malnutrition; N17.9 Acute kidney failure, unspecified; I24.8 Other forms of acute ischemic heart disease; Z66 Do not resuscitate; E87.6 Hypokalemia; Z68.28 Body mass index [BMI] 28.0-28.9, adult; D72.829 Elevated white blood cell count, unspecified; Z23 Encounter for immunization; R79.89 Other specified abnormal findings of blood chemistry; N18.30 Chronic kidney disease, stage 3 unspecified; D64.9 Anemia, unspecified; K83.9 Disease of biliary tract, unspecified; J44.9 Chronic obstructive pulmonary disease, unspecified; I48.91 Unspecified atrial fibrillation; Z96.653 Presence of artificial knee joint, bilateral; Z79.899 Other long term (current) drug therapy; Z88.0 Allergy status to penicillin; Z85.038 Personal history of other malignant neoplasm of large intestine; Z90.49 Acquired absence of other specified parts of digestive tract; Z90.710 Acquired absence of both cervix and uterus; Z87.891 Personal history of nicotine dependence
CPT/HCPCS: 36415; 36430; 36600; 51703; 71045; 71046; 74177; 76705; 80048; 80053; 80074; 81001; 82272; 82607; 82728; 82746; 82803; 83540; 83550; 83735; 83880; 84145; 84439; 84443; 84484; 85014; 85018; 85025; 85027; 85520; 85610; 85730; 86850; 86900; 86901; 86923; 90686; 93005; 93010; 93306; 94640; 94660; 94668; 94761; 94762; 96365; 96375; 99285-25; A9270; C1751; C9113; J1644; J1940; J1956; J2060; J2185; J2916; J2930; J7030; J7050; P9016; Q9967

== ENCOUNTER 2024-03-03 09:47 | Inpatient (IN) | payer OTHER ==
[2024-03-03] VITALS (24 sets, daily range): BP systolic 73–159; BP diastolic 38–145
[~2024-03-03] VITALS: Ht 160 cm; Wt 56.8 kg
[~2024-03-03 09:47] MED LIST changes: +ALBU8HFA2 INH; +ANORO ELLIPTA1 EACH INH; +Acetaminophen650 M1 PO; +FAMO20 PO; +FURO20 PO; +POTCHL20ER PO; +SPIR25 PO
[2024-03-03 10:06] LABS: BASOPHILS ABSOLUTE AUTO 0.09 K/mm3 (0.00-0.23); BASOPHILS PERCENT AUTO 0 % (0-2); EOSINOPHILS PERCENT AUTO 0 % (0-6); Hematocrit 42.3 % (33.0-51.0); Hemoglobin 14.2 g/dL (11.5-16.0); IMMATURE GRAN ABSOLUTE AUTO 0.54 K/mm3 (0.00-0.10); IMMATURE GRAN PERCENT AUTO 2 % (0-1); LYMPHOCYTES ABSOLUTE AUTO 0.78 K/mm3 (0.84-5.20); LYMPHOCYTES PERCENT AUTO 2 % (21-46); MONOCYTES ABSOLUTE AUTO 1.04 K/mm3 (0.16-1.47); MONOCYTES PERCENT AUTO 3 % (4-13); Mean Corpuscular HGB 30.7 pg (26.0-34.0); Mean Corpuscular HGB Conc 33.6 g/dL (31.5-36.5); Mean Corpuscular Volume 92 fL (80-100); Mean Platelet Volume 9.4 fL (9.1-12.4); NEUTROPHILS ABSOLUTE AUTO 30.02 K/mm3 (1.96-9.15); NEUTROPHILS PERCENT AUTO 92 % (41-73); Platelet Count 337 K/mm3 (150-400); RDW Coefficient Variation 14.6 % (11.7-14.2); RDW Standard Deviation 48.7 fL (35.1-46.3); Red Blood Cell Count 4.62 M/mm3 (3.80-5.20); White Blood Cell Count 32.47 K/mm3 (4.00-11.30)
[2024-03-03] MEDS ORDERED: Ondansetron HCl 2 MG / ML 2ML Vial IV ONE (10:20)
[2024-03-03] MEDS ORDERED: FentaNYL Citrate 50 MCG/ML 2 ML Injection IV ONE (10:20)
[2024-03-03 10:24] LABS: Albumin, Blood 3.9 g/dL (3.4-5.0); Albumin/Globulin Ratio 1.1 (0.8-1.8); Bilirubin, Total 1.1 mg/dL (0.1-1.0); Bun/Creatinine Ratio 16.3 (12.0-20.0); Calcium, Blood 9.9 mg/dL (8.5-10.1); Creatinine, Blood 0.68 mg/dL (0.40-1.00); Globulin, Blood 3.7 g/dL (2.2-4.0); Potassium, Blood 3.8 mmol/L (3.5-5.5); Total Protein, Blood 7.6 g/dL (6.4-8.2)
[2024-03-03 10:29] LABS: BAND PERCENT MAN 15 % (0-8); BASOPHILS PERCENT MAN 0 % (0-2); EOSINOPHILS PERCENT MAN 0 % (0-6); LYMPHOCYTES ABSOLUTE MAN 0.32 K/mm3 (0.84-5.20); LYMPHOCYTES PERCENT MAN 1 % (21-46); MONOCYTES ABSOLUTE MAN 0.64 K/mm3 (0.16-1.47); MONOCYTES PERCENT MAN 2 % (4-13); NEUTROPHILS ABSOLUTE MAN 31.49 K/mm3 (1.96-9.15); SEG NEUTROPHILS PERCENT MAN 82 % (41-73); TOTAL CELLS COUNTED 100
[2024-03-03] MEDS ORDERED: Vancomycin HCL 2,000 MG in NS 520 ML IV ONE (12:00)
[2024-03-03] MEDS ORDERED: CefTRIAXone Sodium 2,000 MG in NS 100 ML IV ONE (12:00)
[2024-03-03] MEDS ORDERED: Azithromycin 500 MG in NS 250 ML IV ONE ×3 (12:00→16:05)
[2024-03-03] MEDS ORDERED: NS 1,000 ML IV SCH ×3 (12:00→13:40)
[2024-03-03] MEDS ORDERED: Cefepime HCl 1,000 MG in NS 100 ML IV ONE (12:10)
[2024-03-03] MEDS ORDERED: Acetaminophen 500 MG Tab PO ONE (12:20)
[2024-03-03] MEDS ORDERED: Ipratropium/Albuterol SulF 2.5-0.5MG/3 ML Amp INH ONE (12:40)
[2024-03-03 13:08] LABS: Base Excess Venous -0.4 mmol/L; Bicarbonate Venous 23.3 mmol/L (24.0-30.0); PCO2 Venous 53.8 mmHg (38-42)
[2024-03-03] MEDS ORDERED: Ondansetron HCl 2 MG / ML 2ML Vial IV PRN (13:20)
[2024-03-03] MEDS ORDERED: FLU VACC TS2024-25(6MOS UP)/PF 45 MCG/0.5 ML SYRINGE IM SCH (13:20)
[2024-03-03] MEDS ORDERED: Albuterol 2.5 MG/3 ML VIAL INH PRN (14:40)
[2024-03-03] MEDS ORDERED: Hydrocortisone Sod Succinate 100 MG Vial IV SCH (15:00)
[2024-03-03] MEDS ORDERED: Lactated Ringer's 1,000 ML IV SCH (15:45)
[2024-03-03] MEDS ORDERED: Ipratropium/Albuterol SulF 2.5-0.5MG/3 ML Amp INH SCH (16:10)
[2024-03-03] MEDS ORDERED: Vasopressin 20 UNITS in NS 100 ML IV SCH (18:00)
--- NOTE | 2024-03-03 18:01 | NUR ---
SHIFT SUMMARY PATIENT ADMITTED TO ICU AT 1518. PATIENT ALERT AND ORIENTED X 4. ABLE TO MAKE HER NEEDS KNOWN AND CALLS APPROPRIATELY. PATIENT ARRIVED ON 12MCG/MIN LEVOPHED TITRATING WITH A GOAL TO KEEP MAP ABOVE 65. PATIENT RECIEVED A FLUID BOLUS WITH NO CHANGE IN VITALS. SHE REMAINS ON LEVO [id number]. SINUS RHYTHM HR 90-100S. LUNGS- CLEAR/DIM ON RIGHT, COARSE LEFT. +COUGH, NON PRODUCTIVE AT THIS TIME. UNABLE TO COLLECT SPUTUM SAMPLE YET NONE EXPECTORATED. ON BIPAP 7, FIO2 35%. ALLOWED FOR SHORT BREAK ON NC 5LPM. ABDOMEN IS MILDLY DISTENDED - SHE STATES THIS IS HER BASELINE (PRIOR COLON CA). SOFT/NON TENDER, WITH NORMOACTIVE BOWEL TONES. SOME MILD +1 EDEMA TO RUE. SCATTERED ECCYMOSIS TO BUE. REDNESS TO BILAT GLUTEAL CLEFTS- BLANCHABLE. MOVES ALL EXTREMITIES BUT VISIBLY WEAK. PICC LINE PLACED FOR VASOACTIVE MEDICATIONS. TO START VASOPRESSIN PER DR RODRIGUEZ. CONTACT LIST UPDATED IN CHART.
--- NOTE | 2024-03-03 20:00 | NUR ---
ASSUMPTION OF CARE: ASSUMED CARE OF PT AT 1900. PT ALERT AND ORIENTED, FOLLOWS DIRECTION AND MAKES NEEDS KNOWN. PT ON CPAP, SEE RT ASSESSMENT FOR SETTINGS. SPO2 90'S. DENIES SOB. PT ABLE TO TAKE SMALL BREAKS, PLACED ON 3L NC WHILE OFF CPAP. CAR PARKER IN PLACE, SR WITH HR 90'S WITH FREQUENT PVC'S. DENIES CP/PRESSURE. LEVOPHED INFUSING AT 10 MCG/MIN TO MAINTAIN MAP >65. SEE FLOWSHEET FOR TITRATIONS. NS AT 100 ML/HR. PICC TO JAQUELINE, PATENT AND INFUSING. PIVS TO LH AND LW BOTH PATENT AND SALINE LOCKED. PUREWICK IN PLACE, DRAINING TO SUCTION YELLOW URINE. BED LOW AND LOCKED, CALL LIGHT IN REACH.
[2024-03-03] MEDS ORDERED: Lactobacil 2-S.Thermo-Bifido 1 1 Cap PO SCH (21:00)
[2024-03-03] MEDS ORDERED: Cefepime HCl 1,000 MG in NS 100 ML IV SCH (22:30)
[2024-03-04] VITALS (47 sets, daily range): BP systolic 100–161; BP diastolic 49–126
[2024-03-04 03:58] LABS: Hematocrit 37.3 % (33.0-51.0); Hemoglobin 12.5 g/dL (11.5-16.0); Mean Corpuscular HGB 30.4 pg (26.0-34.0); Mean Corpuscular HGB Conc 33.5 g/dL (31.5-36.5); Mean Corpuscular Volume 91 fL (80-100); Mean Platelet Volume 9.3 fL (9.1-12.4); Platelet Count 273 K/mm3 (150-400); RDW Coefficient Variation 14.8 % (11.7-14.2); RDW Standard Deviation 49.4 fL (35.1-46.3); Red Blood Cell Count 4.11 M/mm3 (3.80-5.20); White Blood Cell Count 29.72 K/mm3 (4.00-11.30)
[2024-03-04 04:18] LABS: Alanine Aminotransfer (ALT/SGP 21 U/L (12-78); Albumin, Blood 2.6 g/dL (3.4-5.0); Albumin/Globulin Ratio 0.8 (0.8-1.8); Alk Phos 61 U/L (50-136); Anion Gap 9 mmol/L (3-11); Aspartate Aminotrans (AST/SGOT 28 U/L (12-37); Bilirubin, Total 0.4 mg/dL (0.1-1.0); Blood Urea Nitrogen 14 mg/dL (8-24); Bun/Creatinine Ratio 21.3 (12.0-20.0); CO2, Blood 26 mmol/L (21-32); Calcium, Blood 8.9 mg/dL (8.5-10.1); Chloride, Blood 112 mmol/L (98-108); Creatinine, Blood 0.66 mg/dL (0.40-1.00); Globulin, Blood 3.2 g/dL (2.2-4.0); Glomerular Filtration Rate 86 (60-); Glucose, Blood 164 mg/dL (70-99); Potassium, Blood 3.8 mmol/L (3.5-5.5); Sodium, Blood 143 mmol/L (136-145); Total Protein, Blood 5.8 g/dL (6.4-8.2); Vancomycin, Random 15.8 ug/mL
[2024-03-04 04:20] LABS: BAND PERCENT MAN 25 % (0-8); BASOPHILS PERCENT MAN 0 % (0-2); EOSINOPHILS PERCENT MAN 0 % (0-6); LYMPHOCYTES ABSOLUTE MAN 0.89 K/mm3 (0.84-5.20); LYMPHOCYTES PERCENT MAN 3 % (21-46); METAMYELOCYTE ABSOLUTE MAN 0.59 K/mm3 (0.00-0.00); METAMYELOCYTE PERCENT MAN 2 % (0-0); MONOCYTES ABSOLUTE MAN 1.48 K/mm3 (0.16-1.47); MONOCYTES PERCENT MAN 5 % (4-13); NEUTROPHILS ABSOLUTE MAN 26.74 K/mm3 (1.96-9.15); SEG NEUTROPHILS PERCENT MAN 65 % (41-73); TOTAL CELLS COUNTED 100
[2024-03-04] MEDS ORDERED: Pantoprazole Sodium 40 MG Injection IV SCH (06:00)
--- NOTE | 2024-03-04 06:12 | NUR ---
SHIFT SUMMARY: NO ACUTE EVENTS OVERNIGHT. PT REMAINS ALERT AND ORIENTED. FOLLOWS DIRECTION AND MAKES NEEDS KNOWN. PT ON 3L NC WITH SPO2 MID 90'S. DENIES SOB. MAIL AGENT IN PLACE, SR WITH HR 90-100. SBP 120'S WITH MAP >65. LEVO ON SB SINCE 514. SEE FLOWSHEET FOR TITRATIONS. NS AT 100 ML/HR. PICC TO JAQUELINE PATENT AND INFUSING. PT DENIES CP OR PAIN T/O. PIV TO LW AND LH BOTH PATENT AND SALINE LOCKED. PUREWICK IN PLACE, DRAINING YELLOW URINE TO SUCTION. NO BM THIS SHIFT. BED LOW AND LOCKED, CALL LIGHT IN REACH.
[2024-03-04] MEDS ORDERED: Vancomycin HCL 750 MG in NS 250 ML IV SCH (09:00)
[2024-03-04] MEDS ORDERED: Metoprolol Succinate 25 MG TABCR PO SCH (09:00)
[2024-03-04] MEDS ORDERED: Enoxaparin 40 MG/0.4 ML SYR SC SCH (09:00)
[2024-03-04] MEDS ORDERED: Aspirin 81 MG Chew PO SCH (09:00)
[2024-03-04] MEDS ORDERED: Azithromycin 250 MG in NS 250 ML IV SCH (12:00)
[2024-03-04] MEDS ORDERED: Acetaminophen 325 MG TABLET PO PRN (14:05)
--- NOTE | 2024-03-04 17:20 | NUR ---
SHIFT SUMMARY PATIENT IS ALERT AND ORIENTED X4. ABLE TO MAKE HER NEEDS KNOWN AND CALLS APPROPRIATELY. VSS. SINUS RHYTHM WITH OCCASIONAL PVCS. INTERMITTENT SINUS TACH HR 90-110S LUNGS ARE MOSTLY CLEAR/DIM STILL A LITTLE COARSE IN SPENCER. ORTHOPNEA, SOME ACCESSORY MUSCLE USE RR 20S. O2 SATS REMAIN ABOVE 95% ON 2LPM VIA NC. ABDOMENT IS SOFT/NONTENDER BUT MILDY DISTENDED. UNKNOWN WHEN LAST BM OCCURRED BUT STATES SHE HAS HAD A DECREASED APPETITE. PASSING FLATUS. ATTEMPTED TO HAVE A BOWEL MOVEMENT TO DAY NO SUCCESS. PATIENT 1 PERSON ASSIST TO BSC. GENERALIZED WEAKNESS AND DYSPNEA BUT MOVES MOSTLY INDEPENDENTLY. APPETITE IMPROVED. WORKED WITH OT/PT TODAY.
--- NOTE | 2024-03-04 18:19 | NUR ---
PT ARRIVED TO MEDICAL FLOOR FROM ICU IN BED, PT ABLE TO STAND PIVOT WITH 1 PERSON ASSIST, DYSPNIC WITH ANY MOVEMENT, RR UP TO 30 BUT RECOVERED QUICKLY. PT IS ON 2L NC, PURWICK IN PLACE DUE TO SOB WITH AMBULATION. SHE REPORTS SOB WITH AMBULATION BASELINE FOR HER.
[2024-03-04] MEDS ORDERED: NS 250 ML IV PRN (20:05)
--- NOTE | 2024-03-04 23:21 | NUR ---
PROVIDER CONTACT TALKED WITH CESAR. CONFERRED CONCERNS ABOUT PATIENTS SUSTAINED HR ABOVE 130. CESAR ORDERED VBG, LACTIC, BMP, BNP, EKG. WILL RELAY RESULTS WHEN AVAILABLE.
[2024-03-04] MEDS ORDERED: Metoprolol Tartrate 1 MG/ML 5 ML VIAL IV ONE (23:40)
[2024-03-05] VITALS (65 sets, daily range): BP systolic 74–194; BP diastolic 36–171
[2024-03-05 00:05] LABS: Bun/Creatinine Ratio 26.9 (12.0-20.0); Calcium, Blood 8.9 mg/dL (8.5-10.1); Creatinine, Blood 0.59 mg/dL (0.40-1.00); Potassium, Blood 3.9 mmol/L (3.5-5.5)
[2024-03-05] MEDS ORDERED: Metoprolol Tartrate 1 MG/ML 5 ML VIAL IV ONE (00:55)
--- NOTE | 2024-03-05 01:48 | NUR ---
TRANSFER NOTE PATIENT WAS ALERT AND ORIENTED AT THE START OF THIS SHIFT. PATIENT HAS INCREASED WORK OF BREATHING SHIFT PROGRESSED. THIS RN WAS NOTIFIED OF SUSTAINED HR AT 2300. NOTIFIED CESAR AND THEN [facility] AND OBTAINED MULTIPLE LABS AND EKGS. PATIENT STARTED NEEDING INCREASED O2 FROM 2L AT THE START OF SHIFT TO 15L HIGH FLOW. PATIENT HAS HAD MINIMAL URINE OUTPUT FROM START OF SHIFT. CALLED [facility] AND PROVIDER CAME TO VISUALIZE PATIENT. ORDERED ADDITIONAL LABS. PATIENT REQUIRED ADDITIONAL O2 AND RESPIRATIONS INCREASED WELL BP. [facility] WAS CALLED AND ICU AND PCU CHARGE ALONG WITH WEATHER ANALYST CAME AND DECIDED TO TRANSFER PATIENT TO ICU 2. REPORT WAS GIVEN TO ICU NURSE ETHAN. CALLED FAMILY AND UPDATED PATIENTS JEMIMA.
--- NOTE | 2024-03-05 01:55 | NUR ---
ARRIVAL TO ICU PT ARRIVED TO ICU 2 AT 0120 FROM MEDICAL FLOOR AFTER CODE ENFORCEMENT OFFICER FOR RESPIRATORY DISTRESS. MENTATION DECREASED FROM REPORT; PT NOT COMMUNICATING WITH STAFF AND NOT FOLLOWING DIRECTIONS; APPEARS RESTLESS; HAS A GAG AND POOR COUGH; ORAL SUCTION DONE BY RT, BROWN/GREEN SECREATIONS NOTED. PLACED ON BIPAP UPON ARRIVAL TO ICU WITH SETTINGS 12/6, FIO2 65%; RR HIGH 20'S TO LOW 30'S; WORK OF BREATHING HIGH. HR 110-120'S. SBP 160-170'S TAKEN ON THE LLE. ABD SEVERELY DISTENDED AND HARD TO PALPATE. PICC TO RUE PATENT; MORNING LABS DRAWN EARLY. CHEST XRAY COMPLETED. DR PIKE GIVEN UPDATE.
[2024-03-05 02:02] LABS: Hematocrit 42.4 % (33.0-51.0); Hemoglobin 13.6 g/dL (11.5-16.0); Mean Corpuscular HGB 30.2 pg (26.0-34.0); Mean Corpuscular HGB Conc 32.1 g/dL (31.5-36.5); Mean Corpuscular Volume 94 fL (80-100); Mean Platelet Volume 9.8 fL (9.1-12.4); Platelet Count 396 K/mm3 (150-400); RDW Coefficient Variation 15.1 % (11.7-14.2); RDW Standard Deviation 52.8 fL (35.1-46.3); White Blood Cell Count 36.57 K/mm3 (4.00-11.30)
[2024-03-05 02:18] LABS: Albumin, Blood 2.8 g/dL (3.4-5.0); Albumin/Globulin Ratio 0.7 (0.8-1.8); Bilirubin, Total 0.3 mg/dL (0.1-1.0); Creatinine, Blood 0.71 mg/dL (0.40-1.00); Globulin, Blood 4.1 g/dL (2.2-4.0); Potassium, Blood 4.4 mmol/L (3.5-5.5); Total Protein, Blood 6.9 g/dL (6.4-8.2)
[2024-03-05 02:25] LABS: BAND PERCENT MAN 17 % (0-8); BASOPHILS PERCENT MAN 0 % (0-2); EOSINOPHILS PERCENT MAN 0 % (0-6); LYMPHOCYTES ABSOLUTE MAN 2.92 K/mm3 (0.84-5.20); LYMPHOCYTES PERCENT MAN 8 % (21-46); MONOCYTES ABSOLUTE MAN 0.73 K/mm3 (0.16-1.47); MONOCYTES PERCENT MAN 2 % (4-13); NEUTROPHILS ABSOLUTE MAN 32.91 K/mm3 (1.96-9.15); SEG NEUTROPHILS PERCENT MAN 73 % (41-73); TOTAL CELLS COUNTED 100
[2024-03-05 04:32] LABS: Base Excess Venous -4.2 mmol/L; Bicarbonate Venous 19.6 mmol/L (24.0-30.0); pH Blood Venous 7.17 (7.34-7.37)
[2024-03-05] MEDS ORDERED: NS 1,000 ML IV ONE (05:15)
[2024-03-05] MEDS ORDERED: propofoL 100 ML IV PRN (05:20)
[2024-03-05] MEDS ORDERED: propofoL 100 ML IV ONE (05:26)
--- NOTE | 2024-03-05 05:44 | NUR ---
INTUBATION 0430 VBG RESULTS CALLED TO DR PIKE REGARDING DECREASE IN pH. PLAN TO INTUBATE. CALL MADE TO PT DAUGHTER JEMIMA BUT THERE WAS NO ANSWER. CONT WITH INTUBATION. 0507- ETOM 20MG 0507- JULISSA 50 0509- INTUBATED WITH 7.5 ETT, 23CM AT GUMS; + BREATH SOUNDS AND COLOR CHANGE. 0511- JYOTI 50 GIVEN AND 250 BOLUS STARTED 0516- JYOTI 50 GIVEN, SECOND 250 BOLUS GIVEN. OG PLACED. CHEST XRAY COMPLETED AND READ BY DR PIKE. VENT SETTINGS AC/VC 18/350/5/50%.
[2024-03-05] MEDS ORDERED: Phenylephrine HCl 100 MCG/ML-NS 10MLSYR (1MG/10ML) IV ONE (06:30)
[2024-03-05] MEDS ORDERED: Rocuronium Bromide 10 MG/ML 5ML Injection IV ONE (06:30)
[2024-03-05] MEDS ORDERED: Etomidate 2MG / ML 10ML Vial IV ONE (06:30)
--- NOTE | 2024-03-05 06:36 | NUR ---
END OF SHIFT NO CHANGES SINCE INTUBATION. PROPOFOL STARTED AT 10MCG/KG/MIN D/T RASS OF +1; SHE IS PULLING AT RESTRAINTS. NO CHANGES TO VENT SETTINGS; SPUTUM SAMPLE SENT. AFEBRILE. SINCE INTUBATION, NSR NOTED WITH RATE 90-110. SBP 110-150'S. OG PLACED AND CLAMPED. VELAZQUEZ PLACED AND IS DRAINING TO GRAVITY. PICC TO RUE PATENT. WILL REPORT TO AM RN WHEN AVAILABLE.
[2024-03-05 07:32] LABS: Base Excess Venous -4.3 mmol/L; Bicarbonate Venous 20.4 mmol/L (24.0-30.0); PCO2 Venous 54.2 mmHg (38-42); pH Blood Venous 7.24 (7.34-7.37)
[2024-03-05] MEDS ORDERED: Cetylpyridinium Chloride 1 EA MISC MT SCH (08:00)
[2024-03-05] MEDS ORDERED: Hydrogen Peroxide 1.5 % Solution MT SCH (12:00)
[2024-03-05] MEDS ORDERED: Nitroglycerin 1 INCH/GM PKT TOP SCH (18:00)
[2024-03-05 20:50] LABS: Vancomycin, Trough 20.1 ug/mL (5.0-10.0)
[2024-03-05] MEDS ORDERED: LORazepam 2 MG/ML 1ML Injection IV PRN (22:20)
[2024-03-05] MEDS ORDERED: LORazepam 2 MG/ML 1ML Injection ONE (22:47)
[2024-03-05] MEDS ORDERED: Midazolam HCL 50 MG in NS 40 ML IV SCH (23:05)
[2024-03-06] VITALS (95 sets, daily range): BP systolic 85–137; BP diastolic 42–70
[2024-03-06 04:08] LABS: BASOPHILS ABSOLUTE AUTO 0.02 K/mm3 (0.00-0.23); BASOPHILS PERCENT AUTO 0 % (0-2); EOSINOPHILS PERCENT AUTO 0 % (0-6); Hematocrit 32.1 % (33.0-51.0); Hemoglobin 10.6 g/dL (11.5-16.0); IMMATURE GRAN ABSOLUTE AUTO 0.08 K/mm3 (0.00-0.10); IMMATURE GRAN PERCENT AUTO 1 % (0-1); LYMPHOCYTES ABSOLUTE AUTO 0.91 K/mm3 (0.84-5.20); LYMPHOCYTES PERCENT AUTO 7 % (21-46); MONOCYTES ABSOLUTE AUTO 0.69 K/mm3 (0.16-1.47); MONOCYTES PERCENT AUTO 5 % (4-13); Mean Corpuscular HGB 29.9 pg (26.0-34.0); Mean Corpuscular Volume 91 fL (80-100); Mean Platelet Volume 9.5 fL (9.1-12.4); NEUTROPHILS ABSOLUTE AUTO 10.98 K/mm3 (1.96-9.15); NEUTROPHILS PERCENT AUTO 87 % (41-73); Platelet Count 216 K/mm3 (150-400); RDW Coefficient Variation 15.4 % (11.7-14.2); RDW Standard Deviation 52.2 fL (35.1-46.3); Red Blood Cell Count 3.54 M/mm3 (3.80-5.20); White Blood Cell Count 12.68 K/mm3 (4.00-11.30)
--- NOTE | 2024-03-06 04:12 | NUR ---
SHIFT SUMMARY PT REMAINS INTUBATED AND SEDATED ON PROPOFOL, VERSED ADDED DUE TO PT ATTEMPTING TO SELF-EXTUBATE. MEGHA -2 AT THIS TIME. PT REMAINS ON VENT SETTINGS UNCHANGED THROUGHOUT NIGHT. ETT PLACEMENT CHECKED AFTER PT TRIED TO SELF-EXTUBATE. PT SINUS TACH WITH OCCASIONAL PVCs. BP WNL. PT FOLLOWS COMMANDS WHEN AWAKE, AGITATED AND ATTEMPTING TO SELF-EXTUBATE WHEN NOT PROPERLY SEDATED. TURNS Q2, VELAZQUEZ REMAINS IN PLACE AND DRAINING. NO BOWEL MOVEMENTS DURING THIS SHIFT. NO APPARENT SKIN ISSUES NOTED.
[2024-03-06 04:35] LABS: Albumin, Blood 2.3 g/dL (3.4-5.0); Albumin/Globulin Ratio 0.7 (0.8-1.8); Bilirubin, Total 0.3 mg/dL (0.1-1.0); Bun/Creatinine Ratio 29.3 (12.0-20.0); Creatinine, Blood 0.82 mg/dL (0.40-1.00); Globulin, Blood 3.3 g/dL (2.2-4.0); Potassium, Blood 3.5 mmol/L (3.5-5.5); Total Protein, Blood 5.6 g/dL (6.4-8.2)
[2024-03-06] MEDS ORDERED: Dextrose 5% 1,000 ML IV SCH (07:30)
[2024-03-06] MEDS ORDERED: Aspirin 81 MG Chew PT SCH (09:00)
[2024-03-06] MEDS ORDERED: Atorvastatin 40 MG Tab PO SCH (09:00)
[2024-03-06] MEDS ORDERED: Metoprolol Tartrate 25 MG Tab PO SCH (09:00)
[2024-03-06 09:20] LABS: Anti-Xa UFH, PHA Monitoring <0.10 IU/mL; International Normalized Ratio 0.97; Prothrombin Time Results 10.4 Sec (9.7-11.5)
[2024-03-06] MEDS ORDERED: Heparin Sodium,Porcine/0.5 NS 500 ML IV SCH (09:35)
[2024-03-06] MEDS ORDERED: Bisacodyl 10 MG Supp PR PRN (11:55)
[2024-03-06] MEDS ORDERED: Docusate Sodium Liquid 100 MG UDC PT PRN (11:55)
[2024-03-06] MEDS ORDERED: Magnesium Hydroxide Conc 10 ML UDC PT PRN (11:55)
[2024-03-06] MEDS ORDERED: Vancomycin HCL 500 MG in NS 250 ML IV SCH (12:00)
[2024-03-06 12:44] LABS: Magnesium, Blood 2.3 mg/dL (1.6-2.4)
[2024-03-06] MEDS ORDERED: Atorvastatin 40 MG Tab PT SCH (13:00)
[2024-03-06] MEDS ORDERED: Dose Adjust by Pharmacy XX STA (17:24)
--- NOTE | 2024-03-06 17:38 | NUR ---
SPOKE TO DAUGHTER JEMIMA ON THE PHONE AT 1430 TODAY. JEMIMA INDICATED SHE WOULD BE IN TO SEE HER MOM AT 1530. SHE AGREED TO MEET IN PT ROOM. JEMIMA ARRIVED TO HOSPITAL AT 1715. JIMENEZ SALEEM CALLED TO LET ME KNOW SHE WAS HERE. WHEN I ARRIVED TO ROOM, JEMIMA WAS WALKING OUT OF ROOM AND WAS TEARFUL. HER SISTER WAS WITH HER. DISCUSSED WITH HER AND SISTER WHY HER MOM WAS WAS ON VENTILATOR. JEMIMA STATED SHE JUST COULD NOT UNDERSTAND HOW SHE WAS OKAY AND THEY SENT HER TO DIFFERENT FLOOR AND THEN CAME BACK TO ICU AND WAS PLACED ON A VENTILATOR. ATTEMPTED TO FURTHER EDUCATE JEMIMA AND HER SISTER BUT JEMIMA BEGAN WALKING AGAIN AND LEFT THE BUILDING. SISTER WAS RECEPTIVE. GAVE SISTER FURTHER DETAILS. I SPOKE TO STIVEN PRIMARY RN. STIVEN STATED SHE HAD EDUCATED JEMIMA ON WHAT PALLIATIVE CARE SERVICES WERE PRIOR TO MY ARRIVAL. STIVEN INFORMED ME THEY WILL ATTEMPT TO BRING PT OUT OF SEDATION IN THE MORNING AND INVITED DAUGHTER TO BE PRESENT. STIVEN STATED JEMIMA HAD INDICATED SHE WANTED TO BE PRESENT. WILL CONTINUE TO FOLLOW-UP TOMORROW.
--- NOTE | 2024-03-06 17:43 | NUR ---
SHIFT SUMMARY.... PT HAS BEEN ON PROPOFOL RUNNING AT 35MCG AND VERSED GTT UP TO 5MG/HR FOR SEDATION. PT'S FIO2 HAS DECREASED DOWN TO 30% FIO2 WITH O2 SATS>90%. PT'S BP HAS BEEN SOFT T/O THIS SHIFT, THE VERSED GTT WAS DECREASED FROM 5MG/HR TO 4MG/HR D/T MAPS <65. PT HAS NOT HAD A BM THIS SHIFT. TUBE FEEDS STARTED PER ORDERS VHP AT 25MLS/HR WITH WATER FLUSHES 30MLS Q4HR. PT'S VELAZQUEZ IS PATENT AND DRAINING TO GRAVITY. PT'S DAUGHTER CAME TO THE BEDSIDE APROX 1700, SHE WAS UPSET AND STATED SHE DID NOT UNDERSTAND "HOW SHE GOT SO BAD SO FAST." THIS RN ATTEMPTED UPDATE THE PT'S DAUGHTER JEMIMA ON THE PT'S CONDTION AND WHAT THE PROVIDERS SUSPECTED HAD HAPPENED IN THE PT'S CHANGE OF CONDITON, THE PT'S DAUGHTER STATED "YEAH I KNOW HER LUNGS FILLED WITH FLUIDS BECAUSE YOU HAVE HER LAYING BACK! AND YOU HAVE HER IN A COMA! THATS WHY SHE'S SO BAD!" THIS RN ATTEMPTED TO EDUCATE THE DAUGHTER ON WHAT PULMONARY EDEMA WAS AND WHY THE PATEINT WAS SEDATED. THE DAUGHTER THEN ASKED IF THEY COULD TRANSFER PATIENT TO A "[facility]" THIS RN INFORMED THE DAUGHTER OF THE TRANSFER POLICY TO A HIGHER LEVEL OF CARE BUT SHE DID HAVE THE OPTION TO PAY OUT OF POCKET TO TRANSFER TO ANOTHER HOSPITAL IF SHE COULD FIND AN ACCEPTING PROVIDER. THE DAUGHTER BECAME MORE UPSET AND LEFT WHEN THE PALLIATIVE CARE RN CAME INTO THE ROOM.
--- NOTE | 2024-03-06 18:05 | NUR ---
END OF SHIFT SUMMERY PATIENT ALERT AND ORIENTED THROUGHOUT THE DAY, CONSTANT ABDOMENAL PAIN REMAINS. 50MCG OF FENTANYL GIVEN X 5, IV DILAUDID ADDED. WEANED TO ROOM AIR WITH SATS > 96%. HR AND BP STABLE, AFEBRILE. EGD PERFORMED BY DR. ANDREW, SEE NOTE. HGB REMAINS IN THE 8'S AT THIS TIME, NO STOOL TODAY. ABLE TO VOID WITH BEDPAN.
[2024-03-06] MEDS ORDERED: Metoprolol Tartrate 25 MG Tab PT SCH (21:00)
[2024-03-07] VITALS (89 sets, daily range): BP systolic 79–135; BP diastolic 40–77
[2024-03-07] MEDS ORDERED: Dose Adjust by Pharmacy XX STA ×3 (03:46→17:00)
[2024-03-07 04:19] LABS: BASOPHILS ABSOLUTE AUTO 0.02 K/mm3 (0.00-0.23); BASOPHILS PERCENT AUTO 0 % (0-2); EOSINOPHILS ABSOLUTE AUTO 0.03 K/mm3 (0.00-0.68); EOSINOPHILS PERCENT AUTO 0 % (0-6); Hematocrit 30.9 % (33.0-51.0); Hemoglobin 10.2 g/dL (11.5-16.0); IMMATURE GRAN ABSOLUTE AUTO 0.16 K/mm3 (0.00-0.10); IMMATURE GRAN PERCENT AUTO 2 % (0-1); LYMPHOCYTES ABSOLUTE AUTO 1.04 K/mm3 (0.84-5.20); LYMPHOCYTES PERCENT AUTO 14 % (21-46); MONOCYTES ABSOLUTE AUTO 0.54 K/mm3 (0.16-1.47); MONOCYTES PERCENT AUTO 7 % (4-13); Mean Corpuscular HGB 29.7 pg (26.0-34.0); Mean Corpuscular Volume 90 fL (80-100); Mean Platelet Volume 9.4 fL (9.1-12.4); NEUTROPHILS ABSOLUTE AUTO 5.78 K/mm3 (1.96-9.15); NEUTROPHILS PERCENT AUTO 76 % (41-73); Platelet Count 207 K/mm3 (150-400); RDW Coefficient Variation 15.8 % (11.7-14.2); RDW Standard Deviation 52.5 fL (35.1-46.3); Red Blood Cell Count 3.43 M/mm3 (3.80-5.20); White Blood Cell Count 7.57 K/mm3 (4.00-11.30)
--- NOTE | 2024-03-07 04:30 | NUR ---
PT REMAINS INTUBATED IN BED THROUGHOUT NIGHT WITH VENT SETTINGS UNCHANGED. PT SEDATED WITH MEGHA SCORE -2 CURRENTLY. PT BATHED AND PICC LINE DRESSING CHANGED. VELAZQUEZ CATHETER IN PLACE FOR ACCURATE Is AND Os. Q2 TURNS. LUNG SOUNDS ARE COARSE. BLOOD PRESSURE STABLE AND SINUS RHYTHM TO SINUS TACH. RESTRAINTS REMAIN IN PLACE. TUBE FEED ADVANCED TO 45ML/HR AND NO BOWEL MOVEMENTS. REPORT WILL BE PASSED TO ONCOMING NURSE.
[2024-03-07 04:38] LABS: Albumin, Blood 2.1 g/dL (3.4-5.0); Albumin/Globulin Ratio 0.7 (0.8-1.8); Bilirubin, Total 0.2 mg/dL (0.1-1.0); Bun/Creatinine Ratio 37.8 (12.0-20.0); Calcium, Blood 8.5 mg/dL (8.5-10.1); Creatinine, Blood 0.64 mg/dL (0.40-1.00); Globulin, Blood 3.2 g/dL (2.2-4.0); Magnesium, Blood 2.1 mg/dL (1.6-2.4); Phosphorus, Blood 1.5 mg/dL (2.5-4.9); Potassium, Blood 3.7 mmol/L (3.5-5.5); Total Protein, Blood 5.3 g/dL (6.4-8.2)
[2024-03-07] MEDS ORDERED: Potassium Phosphate Dibasic 30 MM in Dextrose 5% 500 ML IV ONE (06:05)
[2024-03-07] MEDS ORDERED: dexmedeTOMIDine 100 ML IV SCH (08:05)
[2024-03-07] MEDS ORDERED: Furosemide 10 MG / ML 2ML Vial IV ONE (08:30)
[2024-03-07] MEDS ORDERED: Ipratropium/Albuterol SulF 2.5-0.5MG/3 ML Amp INH SCH (08:35)
[2024-03-07] MEDS ORDERED: FentaNYL Citrate 50 MCG/ML 2 ML Injection IV PRN (08:35)
[2024-03-07] MEDS ORDERED: Albumin Human 50 ML IV ONE ×2 (11:10)
[2024-03-07 11:15] LABS: Vancomycin, Trough 16.1 ug/mL (5.0-10.0)
[2024-03-07] MEDS ORDERED: Thiamine HCl 100 MG Tab PT SCH (12:40)
[2024-03-07] MEDS ORDERED: Multivitamins-Minerals Liquid 15 ML Oral Syringe PT SCH (12:40)
[2024-03-07] MEDS ORDERED: MethylPREDNISolone Sod Succ 40 MG VIAL IV ONE (12:50)
[2024-03-07] MEDS ORDERED: Sodium Chloride 0.45% 1,000 ML IV SCH (13:30)
[2024-03-07] MEDS ORDERED: Protein Supplement 30 ML UD PT SCH (14:00)
[2024-03-07] MEDS ORDERED: Protein Supplement 30 ML UD PO SCH (14:00)
--- NOTE | 2024-03-07 18:50 | NUR ---
SHIFT SUMMARY... PT WAS STARTED ON LEVOPHED D/T MAPS<65, LEVOPHED HAS BEEN AT 4MCG/MIN TO KEEP MAPS>65. THE PT WAS STARTED ON A PRECEDEX DRIP IN ORDER TO STOP THE VERSED DRIP. THE VERSED DRIP HAS BEEN OFF SINCE 1030. ALL SEDATION WAS STOPPED AT 1500 AND IS STILL OFF. PT WILL OPEN HER EYES TO VERBAL STIMULI BUT DOES NOT FOLLOW COMMANDS AT THIS TIME. VELAZQUEZ IS PATENT AND DRAINING TO GRAVITY. PT HAS NOT HAD A BM THIS SHIFT. TUBE FEEDS RUNNING AT GOAL PER ORDERS. PT'S SISTER SELWYN UPDATED SEVERAL TIMES T/O THIS SHIFT. WILL REPORT TO NOC SHIFT RN.
[2024-03-08] VITALS (91 sets, daily range): BP systolic 90–135; BP diastolic 44–79
--- NOTE | 2024-03-08 05:24 | NUR ---
SHIFT SUMMERY PT REMAINS INTUBATED VIA ETT THAT HAS REMAINED INTACT AND PATENT TO THE VENT. PT WAS RESTARTED ON PRECEDEX FOR RESTLESSNESS, SEE [facility]. SHE IS REQUIRING LEVOPHED WELL TO MAINTAIN MAP>65. VELAZQUEZ CATH INTACT PATENT AND DRAINING YELLOW URINE TO GRAVITY. PT HAS OG TUBE W/TF INFUSING AT GOAL, TOLERATING W/OUT DIFFICULTY. SHE HAS OPENED HER EYES SPONTANEOUSLY AND WHILE UNRESTRAINED DURING HER BATH SHE DID REACH FOR THE ETT. OXYGEN SAT HAVE REMAINED >95% AND PT HAS HAD NO RESP DISTRESS THIS SHIFT. HEPARIN GTT IS INFUSING PER MD ORDER.
[2024-03-08 05:27] LABS: Hematocrit 33.6 % (33.0-51.0); Hemoglobin 11.2 g/dL (11.5-16.0); Mean Corpuscular HGB 29.9 pg (26.0-34.0); Mean Corpuscular HGB Conc 33.3 g/dL (31.5-36.5); Mean Corpuscular Volume 90 fL (80-100); Mean Platelet Volume 9.6 fL (9.1-12.4); Platelet Count 227 K/mm3 (150-400); RDW Coefficient Variation 15.3 % (11.7-14.2); RDW Standard Deviation 50.8 fL (35.1-46.3); Red Blood Cell Count 3.75 M/mm3 (3.80-5.20); White Blood Cell Count 10.87 K/mm3 (4.00-11.30)
[2024-03-08 05:50] LABS: BASOPHILS PERCENT MAN 0 % (0-2); EOSINOPHILS PERCENT MAN 0 % (0-6); LYMPHOCYTES ABSOLUTE MAN 1.19 K/mm3 (0.84-5.20); LYMPHOCYTES PERCENT MAN 11 % (21-46); METAMYELOCYTE PERCENT MAN 1 % (0-0); MONOCYTES ABSOLUTE MAN 0.65 K/mm3 (0.16-1.47); MONOCYTES PERCENT MAN 6 % (4-13); NEUTROPHILS ABSOLUTE MAN 8.91 K/mm3 (1.96-9.15); SEG NEUTROPHILS PERCENT MAN 82 % (41-73); TOTAL CELLS COUNTED 100
[2024-03-08] MEDS ORDERED: Dose Adjust by Pharmacy XX STA (05:51)
[2024-03-08 06:03] LABS: Albumin, Blood 2.4 g/dL (3.4-5.0); Albumin/Globulin Ratio 0.7 (0.8-1.8); Bilirubin, Total 0.3 mg/dL (0.1-1.0); Bun/Creatinine Ratio 43.8 (12.0-20.0); Calcium, Blood 8.8 mg/dL (8.5-10.1); Creatinine, Blood 0.59 mg/dL (0.40-1.00); Globulin, Blood 3.3 g/dL (2.2-4.0); Magnesium, Blood 2.1 mg/dL (1.6-2.4); Phosphorus, Blood 2.6 mg/dL (2.5-4.9); Potassium, Blood 4.2 mmol/L (3.5-5.5); Total Protein, Blood 5.7 g/dL (6.4-8.2)
--- NOTE | 2024-03-08 07:38 | NUR ---
START OF SHIFT THIS NURSE ASSUMED CARE AT APPROXIMATELY 0700. PT INTUBATED AND SEDATED ON PRECEDEX AND IV PRN PUSHES FROM MEDS ON EMAR. PT ON 0.7MCG/KG/HR OF PRECEDEX. PT TOLERATING VENTILATOR AT THIS TIME. PT HAS NO S/S OF DISTRESS OR DISCOMFORT. PT SAT97% ON 30% FIO2 WITH BP MAP ABOVE 65 ON 1 OF LEVO. HEPARIN GTT INFUSING AT 14U/KG/HR. WILL CONTINUE WITH PLAN OF CARE.
[2024-03-08] MEDS ORDERED: Furosemide 10 MG / ML 2ML Vial IV ONE (10:25)
[2024-03-08 11:35] LABS: Vancomycin, Trough 15.4 ug/mL (5.0-10.0)
--- NOTE | 2024-03-08 15:08 | NUR ---
SPOKE TO DAUGHTER JEMIMA OVER THE PHONE. GAVE UPDATE TO JEMIMA HER MOM FAILED SBT TODAY. JEMIMA ASKED IF HER MOM WAS GOING TO COME OFF VENTILATOR. INFORMED JEMIMA I AM NOT ABLE TO MAKE THAT DECISION. JEMIMA ASKED WHAT HAPPENS IF SHE CANNOT BE REMOVED FROM THE VENTILATOR. JEMIMA EDUCATED ON POTENTIAL OUTCOMES IF SHE IS UNABLE TO COME OFF VENTILATOR. ASKED JEMIMA IF SHE WAS COMING TO VISIT TODAY SO I CAN ANSWER QUESTIONS IN PERSON. SHE STATED SHE WOULD BE IN THIS EVENING. SUGGESTED SHE TALK TO JIMENEZ DIAZ TO GET UPDATE ON STATUS AND FURTHER DISCUSS WHAT THE OPTIONS ARE. RN NOTIFIED JEMIMA WILL BE IN THIS EVENING.
--- NOTE | 2024-03-08 18:06 | NUR ---
SHIFT SUMMARY PT REMAINS INTUBATED AND SEDATED. PROPOFOL GTT RESTARTED CONSIDERING HIGH RISK FOR SELF EXTUBATION. PT RECIEVED SBT BUT FAILED D/T TACHYPNEA, LOW TIDAL VOLUMES. STATED PT IS AT HIGH RISK FOR EXTUBATION. SELWYN THE SISTER UPDATED, ALSO SPOKE WITH DAUGHTER JEMIMA REGARDING PT CONDITION. HEPARIN GTT CONTINUING AT 14U. WILL CONTINUE WITH PLAN OF CARE.
--- NOTE | 2024-03-08 21:00 | NUR ---
ASSUMED CARE OF PT AT 1900 PT RESTING ON BED, APPEARS CALM AND COMFORTABLE. RASS -1. PT HAS PROPOFOL INFUSING AT 15MCG/KG/MIN, HEPARIN AT 14 UNITS/KG/HR, AND PRECEDEX AT 0.7MCG/KG/HR. LEVOPHED ON STAND BY. PT IN BILAT SOFT WRIST RESTRAINTS, TOLERATING VENT. SETTINGS AC/VC 16/350/5/30% FIO2. LUNGS SOUNDS COARSE W/ EXP WHEEZES. PT NSR ON SENIOR INTERACTION DESIGNER, RATE OF 70S. MAP>65. VELAZQUEZ CATH PATENT AND DRAINING TO GRAVITY. TUBE FEEDING RUNNING AT GOAL 20ML/HR, W/ Q4 30ML WATER FLUSHES. PT AFEBRILE. PT FAMILY TO BEDSIDE FOR VISIT. PLAN OF CARE ONGOING.
[2024-03-09] VITALS (78 sets, daily range): BP systolic 91–132; BP diastolic 44–70
[2024-03-09] MEDS ORDERED: Vancomycin HCL 500 MG in NS 250 ML IV SCH
[2024-03-09 04:03] LABS: Hematocrit 32.5 % (33.0-51.0); Hemoglobin 10.8 g/dL (11.5-16.0); Mean Platelet Volume 9.9 fL (9.1-12.4); Platelet Count 232 K/mm3 (150-400)
--- NOTE | 2024-03-09 05:18 | NUR ---
NOC SHIFT SUMMARY NO ACUTE EVENTS OVERNIGHT. DRIP RATES AND VENT SETTINGS UNCHANGED. PT RECIEVED BREATHING TX T/O SHIFT W/ GOOD EFFECT. MINIMAL THICK SECRETIONS VIA ETT. REMAINS IN NSR RATE OF 70S. BP STABLE, LEVO REMAINS ON STANDBY. PT AFEBRILE. NO BM THIS SHIFT. GOOD OUTPUT VIA VELAZQUEZ CATH. PT TURNED Q2HRS AND RECIEVED BED BATH. PLAN OF CARE ONGOING.
--- NOTE | 2024-03-09 07:13 | NUR ---
START OF SHIFT THIS NURSE ASSUMED CARE AT APPROXIMATELY 0700. PT REMAINS SEDATED AND INTUBATED ON PRECEDEX AND PROPOFOL. LEVO REMAINED OFF THROUGHOUT THE NIGHT. PT ABLE TO OPEN EYES TO VOICE AND NOD YES. NO S/S OF PAIN OR DISTRESS. WILL CONTINUE WITH THE PLAN OF CARE.
[2024-03-09] MEDS ORDERED: MethylPREDNISolone Sod Succ 40 MG VIAL IV SCH (15:00)
[2024-03-09 16:03] LABS: Bun/Creatinine Ratio 53.4 (12.0-20.0); Calcium, Blood 8.7 mg/dL (8.5-10.1); Creatinine, Blood 0.64 mg/dL (0.40-1.00); Magnesium, Blood 1.8 mg/dL (1.6-2.4); Phosphorus, Blood 3.2 mg/dL (2.5-4.9); Potassium, Blood 4.2 mmol/L (3.5-5.5)
--- NOTE | 2024-03-09 17:41 | NUR ---
SHIFT SUMMARY PT REMAINS INTUBATED AND SEDATED. PT FAILED TWO SBT. FIRST SBT FAILED DUE TO INCREASED WORK OF BREATHING, TACHYCARDIA IN 100-110'S AND TACHYPNEA. PT ABLE TO STAY ON SBT FOR APPROXIMATELY 1.5HRS. SECOND SBT WAS APPROXIMATELY 1HR AND FAILED DUE TO LOW OXYGEN SATURATION ON 100% SPO2. PT SPO2 WENT DOWN TO APPROXIMATELY 85. PT IN THE AFTERNOON WAS SEEN REACHING AND TUGGING ON THE INLINE SUCTION IN A PRESUMED ATTEMPT TO SELF EXTUBATE. PROPOFOL GTT INCREASED D/T HIGH RISK OF SELF EXTUBATING. SISTER SELWYN AND JEMIMA UPDATED TODAY. PLAN TO DC HEPARIN AND START ELEQUIS PER TUBE SIMUTANEOUSLY AT 2100 PER PHARMACY.
[2024-03-09] MEDS ORDERED: Enoxaparin 100 MG/ML 1ML SYR SC SCH (21:00)
[2024-03-09] MEDS ORDERED: Apixaban 5 MG Tab PO SCH (21:00)
[2024-03-10] VITALS (56 sets, daily range): BP systolic 90–148; BP diastolic 45–72
[2024-03-10 03:15] LABS: Hematocrit 33.4 % (33.0-51.0); Mean Corpuscular HGB 29.9 pg (26.0-34.0); Mean Corpuscular HGB Conc 32.9 g/dL (31.5-36.5); Mean Corpuscular Volume 91 fL (80-100); Mean Platelet Volume 9.4 fL (9.1-12.4); Platelet Count 246 K/mm3 (150-400); RDW Coefficient Variation 15.5 % (11.7-14.2); RDW Standard Deviation 52.3 fL (35.1-46.3); Red Blood Cell Count 3.68 M/mm3 (3.80-5.20); White Blood Cell Count 10.27 K/mm3 (4.00-11.30)
[2024-03-10 03:38] LABS: Bun/Creatinine Ratio 56.8 (12.0-20.0); Calcium, Blood 8.9 mg/dL (8.5-10.1); Creatinine, Blood 0.58 mg/dL (0.40-1.00); Magnesium, Blood 2.3 mg/dL (1.6-2.4); Phosphorus, Blood 2.9 mg/dL (2.5-4.9); Potassium, Blood 4.6 mmol/L (3.5-5.5)
--- NOTE | 2024-03-10 05:33 | NUR ---
SHIFT SUMMARY PT INTUBATED AND SEDATED, OPENS EYES TO VERBAL STIMULI. PROPOFOL AND PRECEDEX INFUSING. ON DIAL PRINTER, HR 60-70'S, MAPS 60-70'S. VENT SETTINGS AC/VC 16/350/5/30%, SATS > 94%. LUNG SOUNDS COARSE AND WHEEZY T/O. NO BM THIS SHIFT. VELAZQUEZ PATENT AND DRAINING TO GRAVITY, GOOD UOP NOTED. HEPARIN INFUSION STOPPED AND STARTED ELIQUIS. TF RUNNING AT GOAL RATE OF 45 ML/H. NO ACUTE EVENTS THIS SHIFT.
[2024-03-10 11:31] LABS: Vancomycin, Trough 16.2 ug/mL (5.0-10.0)
--- NOTE | 2024-03-10 20:22 | NUR ---
ASSUMPTION OF CARE ASSUMED CARE OF PATIENT AT APPROXIMATELY 1999, BEDSIDE SHIFT REPORT RECIEVED FROM JERARDO RN. PT RESTING IN BED, INTUBATED AND SEDATED. PROPOFOL INFUSING AT 15MCG/KG/HR, PRECEDEX INFUSING AT 1.2 MCG/KG/HR. PT OPENS EYES TO VERBAL STIMULI, FOLLOWS DIRECTION WHEN PROMPTED. PT MOVES EXTEREMITIES EQUALLY BILATERALLY. HR 60-70'S SINUS, SBP 90-100'S. VENT SETTINGS SIMV 10/350/5/30%, OXYGEN SATURATION >95%. ABDOMEN SOFT, BOWEL TONES HYPOACTIVE. OG TUBE IN PLACE INFUSING VHP AT GOAL RATE OF 45MLS/HR WITH 30ML Q4H WATER FLUSH. VELAZQUEZ IN PLACE PATENT DRAINING YELLOW URINE TO GRAVITY. PICC LINE IN PLACE TO JAQUELINE INFUSING. BED IN LOWEST POSITION, CARE CONTINUES.
[2024-03-10] MEDS ORDERED: Apixaban 5 MG Tab PO SCH (21:00)
[2024-03-11] VITALS (70 sets, daily range): BP systolic 63–196; BP diastolic 38–123
[2024-03-11 04:32] LABS: Bun/Creatinine Ratio 66.5 (12.0-20.0); Calcium, Blood 8.8 mg/dL (8.5-10.1); Creatinine, Blood 0.56 mg/dL (0.40-1.00); Potassium, Blood 4.3 mmol/L (3.5-5.5)
--- NOTE | 2024-03-11 05:48 | NUR ---
SHIFT SUMMARY NO ACUTE CHNAGES THIS SHIFT. PT CONTINUES TO REST IN BED, INTUBATED AND SEDATED PROPOFOL INFUISNG AT 10MCG/KG/HR, PRECEDEX INFUSING AT 0.8MCG/KG/HR. PT OPENS EYES TO VERBAL STIMULI, FOLLOWS DIRECTION WHEN PROMPTED. PT MOVES EXTREMITIES EQUALLY BILATERALLY. HR 60-70'S SINUS, SBP 90-120'S. VENT SETTINGS SIMV 10/350/5/30%, OXYGEN SATURATION >90%. ABDOMEN SOFT, BOWEL TONES HYPOACTIVE. OG TUBE IN PLACE INFUSING VHP AT GOAL RATE OF 45MLS/HR WITH 30ML Q4H WATER FLUSH. VELAZQUEZ IN PLACE PATENT DRAINING YELLOW URINE TO GRAVITY. PICC LINE IN PLACE TO JAQUELINE INFUSING. BED IN LOWEST POSITON, CARE CONTINUES.
--- NOTE | 2024-03-11 12:30 | NUR ---
EXTUBATED PT. EXTUBATED PT AT 1225. SHE HAS A STRONG COUGH AND A WHISPERY VOICE. PULSE 109 SAO2 AT 94% ON 3L NC. RR 22. DR ESPOSITO PRESENT TO SEE AND ASSES PT POST EXTUBATION.
[2024-03-11] MEDS ORDERED: FentaNYL Citrate 50 MCG/ML 2 ML Injection ONE (13:25)
--- NOTE | 2024-03-11 13:30 | NUR ---
1325 Dr. Gutierrez, RT, RNx4, palliative care at bedside for respiratory distress. TIMEOUT performed by RN Lis, Dr. Gutierrez. 1327 50 mcg Fentanyl IVP 1330 60 mg Propofol IVP 1331 50 mg Rocuronium IVP 1332 7.5 ETT, 22 at gums confirmed with color change on colormetric device, bilateral breath sounds. CXR ordered
[2024-03-11] MEDS ORDERED: propofoL 100 ML IV ONE (13:33)
[2024-03-11] MEDS ORDERED: propofoL 100 ML IV SCH (13:40)
--- NOTE | 2024-03-11 13:40 | NUR ---
1345 OGT placed, placement confirmed via auscultation by RNx2. Awaiting CXR for confirmation of ETT and OGT.
--- NOTE | 2024-03-11 13:50 | NUR ---
50MCG OF JYOTI STICK FROM THE RSI BOX GIVEN FOR HYPOTENSION PER DR ESPOSITO
--- NOTE | 2024-03-11 14:22 | NUR ---
PATIENT REINTUBATED @1332, ET TUBE AND OG TUBE WERE VERIFIED IN THE ICU BY DR ESPOSITO VIA CHEST XRAY
--- NOTE | 2024-03-11 14:33 | NUR ---
TRIED TO CONTACT THE DAUGHTER TWICE TODAY WITH NO ANSWER, HOWEVER I HAVE SPOKEN WITH HER SISTERS ALONDRA AND NICOLE, I UPDATED THEM ON HER CONDITION
--- NOTE | 2024-03-11 20:35 | NUR ---
ASSUMPTION OF CARE ASSUMED CARE OF PATIENT AT 1900, BEDSIDE SHIFT REPORT RECEIVED FROM MIKA RN. PT RESTING IN BED, INTUBATED AND SEDATED. PROPOFOL INFUSING AT 25MCG/KG/HR, PRECEDEX INFUSING AT 0.3MCG/KG/HR, INCREASED TO 0.5MCG/KG/HR, SEE FLOWSHEET FOR TITRATIONS. PTS EYES OPEN, FOLLOWS DIRECTION WHEN PROMPTED. PT NODS/SHAKES HEAD TO ANSWER QUESTIONS, MOVES EXTREMITIES EQUALLY BILATERALLY. HR 100-110'S SINUS, MAP >65. VENT SETTINGS AC/VC 18/350/5/30%, OXYGEN SATURATION >95%. ABDOMEN SOFT, BOWEL TONES ACTIVE THROUGHOUT. OG TUBE IN PLACE INFUSING VHP AT GOAL RATE OF 50MLS/HR WITH 30MLS Q4H WATER FLUSH. VELAZQUEZ IN PLACE PATENT DRAINING YELLOW URINE TO GRAVITY. PICC LINE IN PLACE TO JAQUELINE INFUSING. BED IN LOWEST POSITION, CARE CONTINUES.
[2024-03-11] MEDS ORDERED: Mineral Oil 133 ML Enema PR PRN (21:20)
[2024-03-12] VITALS (39 sets, daily range): BP systolic 108–144; BP diastolic 46–75
[2024-03-12 04:23] LABS: Hematocrit 31.6 % (33.0-51.0); Hemoglobin 10.2 g/dL (11.5-16.0); Mean Corpuscular HGB 29.6 pg (26.0-34.0); Mean Corpuscular HGB Conc 32.3 g/dL (31.5-36.5); Mean Corpuscular Volume 92 fL (80-100); Platelet Count 298 K/mm3 (150-400); RDW Coefficient Variation 15.8 % (11.7-14.2); RDW Standard Deviation 51.8 fL (35.1-46.3); Red Blood Cell Count 3.45 M/mm3 (3.80-5.20); White Blood Cell Count 14.42 K/mm3 (4.00-11.30)
[2024-03-12 04:48] LABS: Bun/Creatinine Ratio 53.8 (12.0-20.0); Calcium, Blood 8.7 mg/dL (8.5-10.1); Creatinine, Blood 0.61 mg/dL (0.40-1.00); Magnesium, Blood 2.3 mg/dL (1.6-2.4); Phosphorus, Blood 2.7 mg/dL (2.5-4.9); Potassium, Blood 4.2 mmol/L (3.5-5.5)
--- NOTE | 2024-03-12 04:56 | NUR ---
SHIFT SUMMARY NO ACUTE CHANGES THIS SHIFT. PT CONTINUES TO REST IN BED, INTUBATED AND SEDATED. PROPOFOL INFUSING AT 25MCG/KG/HR, PRECEDEX INFUSING AT 0.5MCG/KG/HR. PT OPENS EYES SPONTANEOUSLY, FOLLOWS DIRECTION WHEN PROMPTED AND MOVES EXTREMITIES EQUALLY BILATERALLY. PT DENIES PAIN THIS SHIFT. HR 90-110'S SINUS, MAP >65. VENT SETTINGS AC/VC 18/350/5/30%, OXYGEN SATURATION >95%. ABDOMEN SOFT, BOWEL TONES ACTIVE THROUGHOUT. OG TUBE IN PLACE WITH VHP INFUSING AT GOAL RATE OF 50MLS/HR WITH 30ML Q4H WATER FLUSH. VELAZQUEZ IN PLACE PATENT DRAINING YELLOW URINE TO GRAVITY. PICC LINE IN PLACE TO JAQUELINE INFUSING. BED IN LOWEST POSITON, CARE CONTINUES.
--- NOTE | 2024-03-12 05:44 | NUR ---
ASSUMED CARE OF LENCHO AT 0500 WITH BSR FROM [facility]. PT ALERT, BLINKING. PT CONT ON VENT, COARSE, WHEEZY BREATH SOUNDS. TUBE FEEDINGS INFUSING, PRECEDEX AND PROPOFOL CONTINUE. VELAZQUEZ TO GRAVITY. STATE PT NEEDS TO HAVE BM, SHE SHAKES HER HEAD NO.
[2024-03-12] MEDS ORDERED: Phenylephrine HCl 40 MCG/ML-NS 10MLSYR (0.4MG/ML) IV ONE (10:54)
[2024-03-12] MEDS ORDERED: Rocuronium Bromide 10 MG/ML 5ML Injection IV ONE ×2 (10:54→17:18)
[2024-03-12] MEDS ORDERED: Propofol 10mg/ml 20 ml Vial (Procedural) IV ONE ×2 (10:54→17:18)
--- NOTE | 2024-03-12 11:02 | NUR ---
LENCHO TURNED FULLY TO HER RIGHT SIDE, SACRUM RED AND INFLAMMED. PICTURES TAKEN. BACK RUBBED, PT NODDING AND SHAKING HER HEAD IN ANSWER TO QUESTIONS. PT WARM TO THE TOUCH, LOW GRADE FEVER 99.1, FAN GIVEN PER HER REQUEST. SELWYN, SISTER CALLED IN AND UPDATED. DURING ROUNDS UPDATE GIVEN AND INTENTION OF PALLIATIVE CARE TO GET AHOLD OF DAUGHTER JEMIMA TO ASK ABOUT THE TRACH. NEED PERMISSION.
--- NOTE | 2024-03-12 11:47 | NUR ---
CALL PLACED TO JEMIMA HOME AND WORK NUMBER ON FILE. BOTH WENT TO [employer]. LEFT DETAILED MESSAGE ON HOME PHONE REQUESTING JEMIMA TO COME IN TO DISCUSS PLACING TRACH WITH DR. IZQUIERDO AND WILL NEED SIGNED PERMISSION FOR PROCEDURE. PRIMARY RN NOTIFIED OF CALL.
[2024-03-12] MEDS ORDERED: NS 1,000 ML IV ONE (15:00)
[2024-03-12] MEDS ORDERED: Phenylephrine HCl 100 MCG/ML-NS 10MLSYR (1MG/10ML) IV ONE (17:18)
--- NOTE | 2024-03-12 17:50 | NUR ---
LENCHO HAS BEEN AWAKE THE MAJORITY OF THE DAY, SHE RECEIVED HER MINERAL OIL ENEMA, SHE WAS ABLE TO KEEP IT IN FOR ABOUT A HALF HOUR THEN WAS ABLE TO HAVE A BM. SHE AND HER DAUGHTER JEMIMA AND HER DIETER DAUGHTER SPOKE TO ABOUT PLANS FOR WHAT IS NEXT. THEY ARE WAITING A DAY OR TWO TO MAKE ANY DECISIONS. THEY FEEL THAT SHE IS WAXING AND WANING AND UNABLE TO MAKE A CLEAR DECISION. THE DAUGHTERS SELFISHLY WOULD LIKE HER TO FIGHT AND GET THE TRACH, BUT SHE IS LEANING TOWARD NOT. REMAINS ON PROPOFOL AND PRECEDEX DRIPS, UNCHANGED. DOSED WITH FENTANYL FOR C/O PAIN. RED AREA ON HER BOTTOM, PICTURES TAKEN.
--- NOTE | 2024-03-12 17:53 | NUR ---
FAMILY CARE MEETING: DAUGHTER JEMIMA, ADOPTED DAUGHTER ABIMBOLA, GARRISON PALLIATIVE CARE RN AND DR. IZQUIERDO PRESENT IN PATIENT ROOM. LENCHO IS ON VENTILATOR BUT EYES ARE OPEN AND SHE IS ABLE TO ANSWER YES/NO QUESTIONS WITH NODDING HER HEAD. DR. IZQUIERDO DISCUSSES WITH PATIENT CHOICES OF GETTING TRACH, STAYING ON VENTILATOR FOR A COUPLE MORE DAYS VS STAYING ON VENTILATOR FOR DURATION OF 14 DAYS AND THEN PULLING OUT TUBE TO SEE HOW SHE DOES AT END OF 14 DAYS. PATIENT CLEARLY NODDED HER HEAD NO WHEN ASKED IF SHE WOULD WANT TO HAVE A TRACH AFTER DR. IZQUIERDO DISCUSSED IN DETAIL HOW A TRACH IS PLACED AND MAINTAINED. PATIENT NODDED HER HEAD YES TO WAITING A COUPLE MORE DAYS TO SEE IF SHE IMPROVES AND WILL REVISIT CHOICES AGAIN AT THAT TIME. PT WAS CALM THROUGHOUT THE CONVERSATION. DAUGHTER JEMIMA AND ABIMBOLA WERE ALSO CALM AND ABLE TO PARTICIPATE IN MEANINGFUL DISCUSSION AND HAD THERE QUESTIONS AND ANSWERED. THEY WERE BOTH ENCOURAGED TO HONOR THEIR MOTHERS WISHES. THEY BOTH AGREE TO WAIT A COUPLE MORE DAYS TO SEE IF MOM LENCHO CAN COME OFF VENTILATOR WITHOUT REQUIRING TRACH PROCEDURE.
[2024-03-13] VITALS (31 sets, daily range): BP systolic 88–166; BP diastolic 44–125
[2024-03-13 03:39] LABS: Hematocrit 27.8 % (33.0-51.0); Hemoglobin 9.1 g/dL (11.5-16.0); Mean Corpuscular HGB 30.1 pg (26.0-34.0); Mean Corpuscular HGB Conc 32.7 g/dL (31.5-36.5); Mean Corpuscular Volume 92 fL (80-100); Mean Platelet Volume 9.2 fL (9.1-12.4); Platelet Count 265 K/mm3 (150-400); RDW Coefficient Variation 15.8 % (11.7-14.2); RDW Standard Deviation 52.6 fL (35.1-46.3); Red Blood Cell Count 3.02 M/mm3 (3.80-5.20); White Blood Cell Count 11.32 K/mm3 (4.00-11.30)
[2024-03-13 03:58] LABS: Bun/Creatinine Ratio 57.2 (12.0-20.0); Calcium, Blood 8.9 mg/dL (8.5-10.1); Creatinine, Blood 0.54 mg/dL (0.40-1.00); Magnesium, Blood 2.6 mg/dL (1.6-2.4); Phosphorus, Blood 3.1 mg/dL (2.5-4.9); Potassium, Blood 4.2 mmol/L (3.5-5.5)
[2024-03-13 04:04] LABS: BAND PERCENT MAN 5 % (0-8); BASOPHILS ABSOLUTE MAN 0.11 K/mm3 (0.00-0.23); BASOPHILS PERCENT MAN 1 % (0-2); EOSINOPHILS ABSOLUTE MAN 0.11 K/mm3 (0.00-0.68); EOSINOPHILS PERCENT MAN 1 % (0-6); LYMPHOCYTES ABSOLUTE MAN 1.35 K/mm3 (0.84-5.20); LYMPHOCYTES PERCENT MAN 12 % (21-46); METAMYELOCYTE ABSOLUTE MAN 0.22 K/mm3 (0.00-0.00); METAMYELOCYTE PERCENT MAN 2 % (0-0); MONOCYTES ABSOLUTE MAN 0.56 K/mm3 (0.16-1.47); MONOCYTES PERCENT MAN 5 % (4-13); MYELOCYTE ABSOLUTE MAN 0.22 K/mm3 (0.00-0.00); MYELOCYTE PERCENT MAN 2 % (0-0); NEUTROPHILS ABSOLUTE MAN 8.71 K/mm3 (1.96-9.15); SEG NEUTROPHILS PERCENT MAN 72 % (41-73); TOTAL CELLS COUNTED 100
--- NOTE | 2024-03-13 05:48 | NUR ---
SHIFT SUMMARY PT IS INTUBATED/SEDATED, RESPONDING TO VERBAL STIMULI. ABLE TO ANSWER YES/NO QUESTIONS WITH HEAD NOD/SHAKE. FOLLOWING COMMANDS. SINUS, HR 60-70'S, BP STABLE. VENT SETTINGS- 18/350/5/35%. SATS > 94%. VELAZQUEZ IN PLACE AND DRAINING TO GRAVITY. GOOD UOP NOTED. LARGE BM X2 THIS SHIFT, PT HAD COMPLETE LINEN CHANGE AND CHG BATH THIS SHIFT. PROPOFOL INFUSING AT 30 MCG/KG/H, PRECEDEX INFUSING AT 0.5 MCG/KG/H. NO ACUTE EVENTS THIS SHIFT.
[2024-03-13] MEDS ORDERED: Furosemide 10 MG/ML 4ML Vial IV STA (09:57)
[2024-03-13] MEDS ORDERED: FentaNYL Citrate 50 MCG/ML 2 ML Injection IV PRN (12:15)
--- NOTE | 2024-03-13 12:30 | NUR ---
Pt being extubated, she is alert and able to write down, "take tube OUT." Order for extubation received. Pt has made it clear she does not want to be reintubated, both in writing and by shaking her head "No" to both staff as well as her daughter Shanell. If the patient is unable to maintain her airway, she will be placed on comfort care, per her wishes. Both daughter and close friend the patient also calls her " extra daughter" are at the bedside along with bedside nurse.
--- NOTE | 2024-03-13 12:51 | NUR ---
SUMMARY OF LAST 2 HOURS: PT WAS ADAMANT THAT SHE WANTED TO ENDOTRACHEAL TUBE OUT AND THAT SHE DID NOT WANT TO HAVE A TRACHEOSTOMY. SISTER SELWYN CALLED AND WHEN SPEAKING WITH HER TOOK THE PHONE. VAIBHAV WAS TALKING TO THE DAUGHTER JEMIMA AND THEN TOOK THE PHONE. THEY ARE ENROUTE. SHE CONTINUES TO COMMUNICATE VIA WRITTEN WORD WITH THIS RN. SHE WAS ANXIOUS ABOUT THEM COMING AND DID NOT WANT TO WAIT. FAMILY ARRIVED AND CALL WAS PLACED TO RESP THERAPY TO EXTUBATE. PT WAS GIVEN DOSES OF FENTANYL PER HER REQUEST. SHE WAS EXTUBATED AT 1235. TO WI, ASKED FOR MORE AIR AND PLACED ON HFNC. ATIVAN AND FENTANYL WAS GIVEN PER ORDERS. DAUGHTER AND FRIEND AT BEDSIDE. SATS >95, WORK OF BREATHING INCREASED RR LOW 20S.
--- NOTE | 2024-03-13 13:44 | NUR ---
"Spiritual care | Palliative Nurse Request Pt. is awake in bed. Daughter is at bedside and welcomes my visit. Pt. is pleasant and also displays evidence of a great sense of humor. Facilitated a life review and considered matters of family and brooks. Listened with empathy and a calming presence. Pt. welcomed prayer. Prayed with Pt. Pt. and family verbalized gratitude for the spiritual care visit. Pt. welcomed this pack operator to return."
[2024-03-13] MEDS ORDERED: Metoclopramide HCl 5MG / ML 2ML Vial IV PRN (14:00)
[2024-03-13] MEDS ORDERED: Atropine Sulfate 1% Opth Soln 2ML BTL SL PRN (16:10)
[2024-03-13] MEDS ORDERED: Morphine Sulfate 20 MG/1ML 1 ML Oral Syringe SL PRN (16:10)
[2024-03-13] MEDS ORDERED: Scopolamine Hydrobromide Patch TOP PRN (16:10)
[2024-03-13] MEDS ORDERED: LORazepam 2 MG/ML 1ML Injection IV PRN (16:10)
[2024-03-13] MEDS ORDERED: LORazepam 1 MG Tab PO PRN (16:10)
--- NOTE | 2024-03-13 16:15 | NUR ---
Family at bedside, tearful. They state they are able to see what's happening, that pt is declining. She is SOB without medication for air hunger as well as having general pain. [address] Pt is now on comfort care with family's blessing. Medications in place per Dr. Milton. Pt to transfer to medical floor. She is medicated with lorazepam and IV fentanyl.
--- NOTE | 2024-03-13 18:23 | NUR ---
PATIENT ALERT AND ORIENTED. ABLE TO MAKE HER NEEDS KNOWN BUT DOES NOT ALWAYS CALL APPROPRITELY. DROWSY THIS EVENING AFTER PRN PAIN/DYSPNEA MEDICATIONS ADMINISTERED. PT WAS EXTUBATED THIS EVENING. REQUIRED 15LPM FOR 45 MIN. TACHYPNEIC WITH ABDOMINAL MUSCULE USE. SOME INTERMITTENT GRUNTING. MD HAD GOALS OF CARE DISCUSSION WITH FAMILY AND PATIENT. PRN MEDICATIONS EFFECTIVE IN MANAGING PAIN, ANXIETY AND IMPROVED DYSPNEA AFTER EXTUBATION. FAMILY AT BEDSIDE, DAUGHTER JEMIMA AND ROOMATE. DECISION TO UPDATE CODE STATUS TO DNR/COMFORT PATIENT REMAINS ON 4 LPM O2 VIA NASAL CANNULA AND MAINTAINING O2 ABOVE 92%. VS STABLE, SOME HTN POST EXTUBATION. SINUS RHYTHM HR 90-100S. PATIENT HAD 2 MED/LOOSE INCONTINENT BOWEL MOVEMENTS TODAY. SOME NAUSEA AFTER EXTUBATION BUT RESOLVED WITH PRN MEDICAITON. MOVES EXTREMITIES WELL BUT WEAK. OG TUBE REMOVED WITH INTUBATION. HAS NOT TAKEN ANYTHING PO SINCE EXTUBATION. IMPRESSIVE UOP AFTER LASIX ADMIN THIS AM. 3L OUT SO FAR THIS SHIFT. ORDERS UPDATED FOR MED FLOOR STATUS, FAMILY AWARE.
--- NOTE | 2024-03-13 19:43 | NUR ---
REPORT CALL CESAR. NOTIFIED JEMIMA (DAUGHTER) AND MESSAGE LEFT FOR SELWYN (SISTER) OF TRANSFER TO ROOM 343.
--- NOTE | 2024-03-14 06:30 | NUR ---
SHIFT SUMMARY: Pt is admitted for severe sepsis and is a DNR. is on comfort care. Started shift alert and able to make needs known. By the time of this writing is barely alert to verbal stimuli. ADLs have been 2p. Comfort medication have been given PRN for pain, agitation and air hunger. PICC in place in left upper arm with dressing that is CDI. folly in place and draining clear go urine. Daughter Go notified of progressive changes about 0545 this AM.
--- NOTE | 2024-03-14 08:17 | NUR ---
PT OPENED EYES WITH VERBAL STIMULI. PT SHOOK HEAD "NO" WHEN ASKED IF SHE WAS IN PAIN. PT THEN CLOSED HER EYES, PROVIDED COMFORTING COMMUNICATION FOR PT. 3L NC FOR COMFORT.
--- NOTE | 2024-03-14 11:30 | NUR ---
"Spiritual Care Visit | Comfort Care Pt. is on comfort care and is mostly not responsive. Daughteris at bedside. Facilitated a life review of the Pt. and the nature of some of the relationships in the Pts. life. Daughter displays evidence of trust and is engaged in our conversation. When staff came into give the Pt. a spongebath this wire drawer excused himself but verbalized that he would be available to the Pt. and family."
--- NOTE | 2024-03-14 18:28 | NUR ---
NO ACUTE CHANGES THIS SHIFT. PT APPEARS COMFORTABLE AT THE END OF THIS SHIFT. TREATED AIR HUNGER PER EMAR. PT SON, SHELLEY, IN ROOM AT THIS TIME, SON IS VERY UPSET, UNDERSTANDABLY, THAT PT IS BEING STARVED. THIS RN ALONG WITH DATABASE MARKETING MANAGER, ATTEMPTED TO EDUCATED ON COMFORT CARE MEASURES, AND THAT PT IS NOT WAKING FOR MORE THAT A FEW SECONDS. PT SISTER, NICOLE, CALLED TO ROOM TO DISCUSS PT DECISION WITH SON. UNKNOWN AT THIS TIME HOW CONVERSATION WENT WE ARE RESPECTING PATIENT AND FAMILY PRIVACY.
--- NOTE | 2024-03-15 04:33 | NUR ---
SHIFT SUMMARY PT ALERT TO SELF ONLY AND ONLY RESPONDS TO PAIN DOES OPEN HER EYES WHEN WE TURN HER OR GO IN WITH HER. VELAZQUEZ CATH INTACT DRAINING YELLOW URINE. SHE REMAINS ON COMFORT CARE AND IS KEPT REPOSITIONED. PTS SON AND DAUGHTER WERE HERE LAST NIGHT THEN WENT HOME. SHE DOES HAVE EPISODES OF AIR HUNGER AND IS GIVEN ROXANOL WITH GOOD RELIEF. PICC LINE IS INTACT TO HER RT ARM AND IS SL. REMAINS ON O2 AT 3L VIA NC. RESTING IN BED AT THIS TIME
--- NOTE | 2024-03-15 11:51 | NUR ---
NOTE: PATIENT SISTER NAME (SELWYN) CALLED FOR AN UPDATES. THIS RN NOT ABLE TO GIVE ANY INFORMATION D/T SISTER IS NOT LISTED ON CONTACT TO RELEASED ANY INFORMATION.
--- NOTE | 2024-03-15 12:39 | NUR ---
DISCUSSED PATIENT WITH BEDSIDE RN. THEODORA PATIENT. SHE IS RESTING. SHE IS HAVING 8-10 SECOND APENIC PAUSES. HER EXTREMITIES ARE WARM TO THE TOUCH, NO MOTTELING AT THIS TIME. DISCUSSED WITH PROVIDER.
--- NOTE | 2024-03-15 17:48 | NUR ---
SHIFT SUMMARY: PATIENT NONVERBAL, ONLY OPEN HER EYES AND MOANS c REPOSITIONING. PATIENT MEDICATED FOR PAIN PER EMAR AND ON 3L O2 FOR COMFORT. ORAL CARE, VELAZQUEZ IN PLACED, PATENT DRAINING YELLOW URINE TO GRAVITY. CALL LIGHT IN REACH.
--- NOTE | 2024-03-16 03:01 | NUR ---
SHIFT SUMM: PT IS A 83 YO DNR PT ADMITTED FOR SEPSIS AND IS CURRENTLY ON CC MEASURES. PT HAS HAD DAUGHTER JEMIMA AND SON LOTTIE VISITING PATIENT THIS SHIFT. THE SON IS STAYING THE NIGHT TONIGHT. PT WAS GIVEN SOME ROXANOL FOR PAIN WHEN SHE HAD SOME MOANS AND GROANS AND SIGNS OF AIR HUNGER. PT IS BEING MEDICATED NEEDED BUT IS UNRESPONSIVE AND DOES NOT OPEN EYES. PT HAS ALSO RECIEVED ATROPINE AND A SCOPLAMINE PATCH ON R EAR. PT HAS A PICC LINE IN JAQUELINE AND A PRESSURE WOUND ON COCCYX WITH A MEPILEX IN PLACE. PT HAS BEEN REPOSITIONED Q2 FOR COMFORT AND A VELAZQUEZ IN PLACE FOR COMFORT. PT'S FAMILY IS CONCERNED AND STATES THEY ARE "WORRIED THAT PT IS STARVING TO " I EDUCATED THE PT'S FAMILY ON CC AND THAT THE PT IS UNABLE TO EAT DUE TO HER BEING UNRESPONSIVE AND UNABLE TO SWALLOW. PALLATIVE CARE CONSULT PLACED TO SPEAK WITH FAMILY. PT HAS CALL LIGHT IN REACH.
--- NOTE | 2024-03-16 18:15 | NUR ---
ROUNDED ON PATIENT THIS MORNING. SHE APPEARS COMFORTABLE AT THIS TIME WITH APENIC PAUSES. PATIENTS SON WAS IN THIS MORNING AND WANTING PLAN OF CARE CLARIFICATION. DR. AGUILAR SPOKE TO SON AND ANSWERED QUESTIONS. PATIENT PASSED THIS AFTERNOON.
--- NOTE | 2024-03-16 18:30 | NUR ---
SHIFT/FINAL DISCHARGE SUMMARY: PATIENT ON CC MEASURE, UNRESPONSIVE, MEDICATED PER EMAR AND REPOSITIONED FOR COMFORT. PATIENT TOD 1624, VERIFIED BY ELEMENTARY SCHOOL PROFESSIONAL RAYO VARELA. NOTIFIED DR. LAUREN HUGO. THIS RN ATTEMPT TO CALL DAUGHTER (JEMIMA) ON MULTIPLE TIMES, BUT WAS NOT AVAILABLE. THIS RN SPOKE TO PATIENT DAUGHTER ROOMATE NAME (MARIA VICTORIA) AND ASKED IF SHE COULD LET JEMIMA KNOW TO CALL MEDICAL UNIT AT [phone]. THIS RN NOTIFIED ELEMENTARY SCHOOL PROFESSIONAL, RAYO VARELA REGARDING THIS ISSSUE. PER RAYO JUST TO WAIT FOR JEMIMA TO CALL BACK. RAYO NOTIFIED NURSING SUP- [facility]. THIS RN SPOKE TO [facility] VIA Sqeeqee PER SLA[facility], PATIENT DAUGHTER AND SON ARE NOT COMING TO SEE THE PATIENT. POST MORTEM CARE DONE. VELAZQUEZ AND PICC LINE DC'D. PATIENT STILL IN ROOM AT THIS TIME, AWAITING FOR HOME COMPANY.
--- NOTE | 2024-03-16 21:21 | NUR ---
THIS NURSE ASSUMED CARE OF PT ON 03/16/24 AT 1900 AND PATIENT HAD ALREADY BUT I ASSISTED ASHISH FROM [facility] IN TRANSPORTING PT TO HIM. PT HAD NO BELONGINGS TO GO WITH HER IN THE ROOM. FACESHEET WAS GIVEN TO HOME AND THE TIME OF .
== END 2024-03-16 16:24 | DRG 870 ==
LOC: ER 09:47 → ICUE 13:15 → MEDS 13:15 → ICUE 15:18 → MEDS 03-04 17:57 → ICUE 03-05 01:20 → MEDS 03-13 19:36
PROVIDERS: Internal Medicine; Internal Medicine Critical Care Medicine; Nurse Practitioner Acute Care; Student in an Organized Health Care Education/Training Program; ADMIT Internal Medicine
PROC: 3E03329 Introduction of Other Anti-infective into Peripheral Vein, Percutaneous Approach (ICD-10-PCS; 2024-03-03)
PROC: 3E033XZ Introduction of Vasopressor into Peripheral Vein, Percutaneous Approach (ICD-10-PCS; 2024-03-03)
PROC: 02HV33Z Insertion of Infusion Device into Superior Vena Cava, Percutaneous Approach (ICD-10-PCS; 2024-03-03)
PROC: 5A09557 Assistance with Respiratory Ventilation, Greater than 96 Consecutive Hours, Continuous Positive Airway Pressure (ICD-10-PCS; 2024-03-03)
PROC: 5A1955Z Respiratory Ventilation, Greater than 96 Consecutive Hours (ICD-10-PCS; principal; 2024-03-05)
PROC: 0BH17EZ Insertion of Endotracheal Airway into Trachea, Via Natural or Artificial Opening (ICD-10-PCS; 2024-03-05)
PROC: 30233J1 Transfusion of Nonautologous Serum Albumin into Peripheral Vein, Percutaneous Approach (ICD-10-PCS; 2024-03-07)
PROC: 0BH17EZ Insertion of Endotracheal Airway into Trachea, Via Natural or Artificial Opening (ICD-10-PCS; 2024-03-11)
PROC: 5A1935Z Respiratory Ventilation, Less than 24 Consecutive Hours (ICD-10-PCS; 2024-03-11)
DX: A41.9 Sepsis, unspecified organism (principal); J18.9 Pneumonia, unspecified organism; J96.01 Acute respiratory failure with hypoxia; J96.02 Acute respiratory failure with hypercapnia; Z66 Do not resuscitate; Z51.5 Encounter for palliative care; I21.4 Non-ST elevation (NSTEMI) myocardial infarction; J44.0 Chronic obstructive pulmonary disease with (acute) lower respiratory infection; I50.42 Chronic combined systolic (congestive) and diastolic (congestive) heart failure; I48.20 Chronic atrial fibrillation, unspecified; E87.4 Mixed disorder of acid-base balance; J44.1 Chronic obstructive pulmonary disease with (acute) exacerbation; R65.20 Severe sepsis without septic shock; I11.0 Hypertensive heart disease with heart failure; I25.10 Atherosclerotic heart disease of native coronary artery without angina pectoris; K74.60 Unspecified cirrhosis of liver; J43.9 Emphysema, unspecified; Z96.653 Presence of artificial knee joint, bilateral; Z88.0 Allergy status to penicillin; Z79.899 Other long term (current) drug therapy; Z85.038 Personal history of other malignant neoplasm of large intestine; Z90.710 Acquired absence of both cervix and uterus; Z90.49 Acquired absence of other specified parts of digestive tract; Z86.73 Personal history of transient ischemic attack (TIA), and cerebral infarction without residual deficits; Z87.891 Personal history of nicotine dependence
CPT/HCPCS: 31500; 36415; 36569; 51702; 71045; 71046; 71275; 74174; 80048; 80053; 80202; 82803; 82947; 83605; 83735; 83880; 84100; 84145; 84484; 85014; 85018; 85025; 85027; 85049; 85520; 85610; 85730; 87040; 87070; 87077; 87205; 93005; 93010; 93306; 93308; 93321; 94002; 94003; 94640; 94660; 94664; 94760; 94762; 96374-59; 96375-59; 97110; 97162; 97166; 97530; 97535; 99285-25; A9270; C1751; J0456; J0692; J0696; J1644; J1650; J1720; J1940; J2060; J2250; J2371; J2405; J2470; J2704; J2765; J2919; J3010; J3370; J7030; J7040; J7050; J7060; J7070; P9047; Q9967